=== PATIENT | female | born 1935 | race Caucasian/White ===

== ENCOUNTER 2017-07-21 15:08 | Emergency (ER) | payer MEDICARE, OTHER, MEDICAID ==
[2017-07-21] MEDS: ASPIRIN 81 MG TAB PO (15:45)
[2017-07-21] MEDS: ONDANSETRON 4 MG INJ IV (15:45)
[2017-07-21 16:10] LABS: ADD MAN DIFF? NO
[2017-07-21 16:16] LABS: BASOPHILS % 0.1 % (0.0-2.0); EOSINOPHILS # 0.1 10^3/ul (0.0-0.5); EOSINOPHILS % 0.9 % (0.0-7.0); HEMATOCRIT 34.3 % (37.0-47.0); HEMOGLOBIN 11.3 g/dl (12.0-16.0); LYMPHOCYTES % 20.4 % (15.0-51.0); MEAN CORPUSCULAR HEMOGLOBIN 29.1 pg (29.0-33.0); MEAN CORPUSCULAR HGB CONC 32.9 g/dl (32.0-37.0); MEAN CORPUSCULAR VOLUME 88.4 fl (82.0-101.0); MEAN PLATELET VOLUME 9.5 fl (7.4-10.4); MONOCYTE # 1.2 10^3/ul (0.3-0.9); MONOCYTES % 7.9 % (0.0-11.0); NEUTROPHIL # 10.2 10^3/ul (1.6-7.5); NEUTROPHILS % 69.6 % (39.0-77.0); PLATELET COUNT 367 10^3/UL (140-415); RED BLOOD COUNT 3.88 10^6/ul (4.20-5.40); RED CELL DISTRIBUTION WIDTH 13.6 % (11.5-14.5)
[2017-07-21 16:16] LABS: WHITE BLOOD COUNT 14.7 10^3/ul (4.8-10.8)
[2017-07-21] MEDS: morphine 4 MG/ML VIAL IV (16:35)
[2017-07-21 16:39] LABS: ANION GAP 15 (8-16); BLOOD UREA NITROGEN 19 mg/dl (7-20); CALCIUM 8.9 mg/dl (8.4-10.2); CARBON DIOXIDE 16 mmol/L (21-31); CHLORIDE 114 mmol/L (97-110); CREATININE 0.78 mg/dl (0.44-1.00); GLUCOSE 101 mg/dl (70-220); POTASSIUM 3.7 mmol/L (3.5-5.1); SODIUM 141 mmol/L (135-144)
[2017-07-21 16:51] LABS: B-TYPE NATRIURETIC PEPTIDE 977 PG/ML (0-450); TROPONIN-I 0.037 ng/ml (0.00-0.12)
== END 2017-07-21 19:40 | disposition home or self-care (01) ==
LOC: E/R 15:08
DX: Q67.7 Pectus carinatum (principal); R07.89 Other chest pain; D72.829 Elevated white blood cell count, unspecified; I10 Essential (primary) hypertension
CPT/HCPCS: 36415; 71045; 71250; 80048; 83880; 84484; 85025; 93005; 96374; 96375; 99285-25

== ENCOUNTER 2017-07-22 03:44 | Inpatient (IN) | payer MEDICARE, OTHER ==
[2017-07-22] MEDS ORDERED: HEPARIN 1000 UNITS/ML 10 ML INJ ×2 (03:55→04:33)
[2017-07-22] MEDS ORDERED: CLOPIDOGREL 75 MG TAB ×2 (03:55→04:06)
[2017-07-22] MEDS: morphine 4 MG/ML VIAL IV (04:03)
[2017-07-22] MEDS: ONDANSETRON 4 MG INJ IV (04:03)
[2017-07-22] MEDS: HEPARIN 1000 UNITS/ML 10 ML INJ IV (04:05)
[2017-07-22] MEDS: CLOPIDOGREL 300 MG TAB PO (04:07)
[2017-07-22 04:10] LABS: ADD MAN DIFF? NO
[2017-07-22 04:15] LABS: BASOPHILS % 0.1 % (0.0-2.0); EOSINOPHILS % 0.2 % (0.0-7.0); HEMATOCRIT 31.2 % (37.0-47.0); HEMOGLOBIN 10.3 g/dl (12.0-16.0); LYMPHOCYTES # 2.3 10^3/ul (0.8-2.9); LYMPHOCYTES % 13.4 % (15.0-51.0); MEAN CORPUSCULAR VOLUME 87.9 fl (82.0-101.0); MEAN PLATELET VOLUME 9.3 fl (7.4-10.4); MONOCYTE # 0.9 10^3/ul (0.3-0.9); MONOCYTES % 5.1 % (0.0-11.0); NEUTROPHIL # 13.6 10^3/ul (1.6-7.5); NEUTROPHILS % 80.5 % (39.0-77.0); PLATELET COUNT 354 10^3/UL (140-415); RED BLOOD COUNT 3.55 10^6/ul (4.20-5.40); RED CELL DISTRIBUTION WIDTH 13.4 % (11.5-14.5)
[2017-07-22 04:15] LABS: WHITE BLOOD COUNT 16.9 10^3/ul (4.8-10.8)
[2017-07-22 04:30] LABS: INR 0.99; PARTIAL THROMBOPLASTIN TIME 32.7 Sec (25.0-35.0); PROTIME 13.2 Sec (11.9-14.9)
[2017-07-22] MEDS ORDERED: LIDOCAINE 1% (MDV) 20 ML INJ (04:33)
[2017-07-22] MEDS ORDERED: VERAPAMIL 5 MG INJ (04:33)
[2017-07-22 04:34] LABS: ANION GAP 14 (8-16); BLOOD UREA NITROGEN 20 mg/dl (7-20); CALCIUM 8.5 mg/dl (8.4-10.2); CARBON DIOXIDE 19 mmol/L (21-31); CHLORIDE 113 mmol/L (97-110); CREATININE 0.82 mg/dl (0.44-1.00); GLUCOSE 207 mg/dl (70-220); POTASSIUM 3.9 mmol/L (3.5-5.1); SODIUM 142 mmol/L (135-144)
[2017-07-22] MEDS ORDERED: NITROGLYCERIN (IC) 100 MCG/ML INJ (04:34)
[2017-07-22 04:42] LABS: B-TYPE NATRIURETIC PEPTIDE 1920 PG/ML (0-450)
[2017-07-22 04:44] LABS: TROPONIN-I 0.612 ng/ml (0.00-0.12)
[2017-07-22] MEDS ORDERED: NITROGLYCERIN (SL) 0.4 MG TAB SL (05:00)
[2017-07-22] MEDS ORDERED: FENTAnyl 50 MCG/ML VIAL (05:13)
[2017-07-22] MEDS ORDERED: PHENYLephrine 10 MG INJ ×2 (05:14→05:34)
[2017-07-22] MEDS ORDERED: ADENOSINE 3 MG/ML 2ML VIAL IV (05:20)
[2017-07-22] MEDS ORDERED: ABCIXIMAB IV (05:30)
[2017-07-22] MEDS ORDERED: SOD CHLORIDE 0.9% IV (05:30)
[2017-07-22] MEDS ORDERED: PROPOFOL 100 ML (05:39)
[2017-07-22] MEDS ORDERED: FUROSEMIDE 40 MG INJ (05:54)
[2017-07-22] MEDS ORDERED: HEPARIN 25000 UNITS/250 ML 250 ML IV (06:30)
[2017-07-22] MEDS ORDERED: HEPARIN 1000 UNITS/ML 10 ML INJ IV ×2 (06:30)
[2017-07-22] MEDS ORDERED: PROPOFOL 200 MG INJ (07:00)
[2017-07-22] MEDS ORDERED: SUCCINYLCHOLINE CHLORIDE 100 MG/5 ML SYG IV (07:00)
[2017-07-22] MEDS ORDERED: ETOMIDATE 20 MG INJ (07:00)
[2017-07-22 07:08] LABS: CHOL/HDL RATIO 4.8 RATIO; HDL CHOLESTEROL 48 mg/dl (33-92); LDL CHOLESTEROL,CALCULATED 162 mg/dl; TRIGLYCERIDES 110 mg/dl (0-149)
[2017-07-22 07:08] LABS: CHOLESTEROL 232 mg/dl (100-200)
[2017-07-22] MEDS ORDERED: NORepinephrine 8MG/250 ML (PMX 250 ML (07:08)
[2017-07-22] MEDS ORDERED: PHENYLephrine 20MG IN 250 ML 250 ML (07:08)
[2017-07-22] MEDS ORDERED: DOPamine-D5W 1.6 MG/ML 250 ML ×2 (07:08→07:19)
[2017-07-22 07:47] LABS: WHITE BLOOD COUNT 28.2 10^3/ul (4.8-10.8)
[2017-07-22 07:47] LABS: ABNORMAL IP MESSAGE 1; HEMATOCRIT 29.3 % (37.0-47.0); HEMOGLOBIN 9.7 g/dl (12.0-16.0); MEAN CORPUSCULAR HEMOGLOBIN 29.6 pg (29.0-33.0); MEAN CORPUSCULAR HGB CONC 33.1 g/dl (32.0-37.0); MEAN CORPUSCULAR VOLUME 89.3 fl (82.0-101.0); MEAN PLATELET VOLUME 9.4 fl (7.4-10.4); PLATELET COUNT 308 10^3/UL (140-415); RED BLOOD COUNT 3.28 10^6/ul (4.20-5.40); RED CELL DISTRIBUTION WIDTH 13.6 % (11.5-14.5)
[2017-07-22 08:00] LABS: ADD MAN DIFF? YES; POSITIVE DIFF @See below
[2017-07-22] MEDS: SOD CHLORIDE 0.9% 1,000 ML IV (08:07)
[2017-07-22] MEDS: PROPOFOL 100 ML IV ×3 (08:07→17:08)
[2017-07-22] MEDS: [UNRECOGNIZED DRUG - OTHER] IV (08:15)
[2017-07-22] MEDS: DOPamine-D5W 1.6 MG/ML 250 ML IV ×2 (08:32→20:57)
[2017-07-22 08:36] LABS: PARTIAL THROMBOPLASTIN TIME > 180.0 Sec (25.0-35.0)
[2017-07-22 08:40] LABS: AADO2 Arterial 600.3 mmHg (7.0-24.0); Arterial Base Excess -13.5 mmol/L (-3.0-3); Arterial Blood Gas Oxygen Sat 92.9 mmHG (95.0-100.0); Arterial COHb 0.3 % (0.0-3.0); Arterial Fraction of Oxyhgb 92.6 % (93.0-99.0); Arterial HCO3 13.6 mmol/L (22.0-26.0); Arterial MetHb 0 % (0.0-1.5); Arterial Total Hemglobin 11.7 g/dl (12.0-18.0); Arterial pCO2 35.8 mmhg (35-45); MODE VENT - AC; Site A-Line
[2017-07-22] MEDS ORDERED: NA BICARBONATE 8.4% 50 ML SYG (08:48)
[2017-07-22] MEDS: NA BICARBONATE 8.4% 50 ML SYG IV (08:52)
[2017-07-22] MEDS: ATENOLOL 25 MG TAB PO (09:00)
[2017-07-22] MEDS ORDERED: ASPIRIN (EC) 81 MG TAB PO (09:00)
[2017-07-22] MEDS ORDERED: CLOPIDOGREL 75 MG TAB PO (09:00)
[2017-07-22] MEDS: SODIUM BICARBONATE (IV ADD) 100 MEQ in DEXTROSE 5%-0.45% NACL 1,000 ML IV (09:19)
[2017-07-22 09:38] LABS: BAND NEUTROPHILS #M 4.2 10^3/ul (0.0-0.6); BAND NEUTROPHILS % (M) 15 % (0-4); LYMPHOCYTES #M 1.1 10^3/ul (0.8-2.9); LYMPHOCYTES % (M) 4 % (15-51); PLATELET ESTIMATE NORMAL; SEGMENTED NEUTROPHILS (M) % 81 % (39-77); SMUDGE%M 10 % (0-0)
[2017-07-22] MEDS: CLOPIDOGREL 75 MG TAB PO (09:47)
[2017-07-22] MEDS: ASPIRIN (EC) 81 MG TAB PO (09:48)
[2017-07-22] MEDS: PIPER-TAZO 3.375 GM IV (PMX) 100 ML IVPB ×3 (10:49→22:07)
[2017-07-22 12:05] LABS: AADO2 Arterial 510.9 mmHg (7.0-24.0); Arterial Base Excess -3.4 mmol/L (-3.0-3); Arterial Blood Gas Oxygen Sat 98.7 mmHG (95.0-100.0); Arterial COHb 0.2 % (0.0-3.0); Arterial Fraction of Oxyhgb 98.3 % (93.0-99.0); Arterial HCO3 21.6 mmol/L (22.0-26.0); Arterial MetHb 0.2 % (0.0-1.5); Arterial Total Hemglobin 12.2 g/dl (12.0-18.0); Arterial pCO2 38.5 mmhg (35-45); MODE VENT - AC; Site A-Line
[2017-07-22] MEDS: FAMOTIDINE 20 MG INJ IV ×2 (12:20→20:57)
[2017-07-22] MEDS: FENTAnyl (DRIP) 1000 mcg/100mL 100 ML IV ×2 (13:39→21:06)
[2017-07-22 15:55] LABS: AADO2 Arterial 297.5 mmHg (7.0-24.0); Arterial Base Excess -0.8 mmol/L (-3.0-3); Arterial Blood Gas Oxygen Sat 97.3 mmHG (95.0-100.0); Arterial COHb 0.2 % (0.0-3.0); Arterial Fraction of Oxyhgb 96.9 % (93.0-99.0); Arterial HCO3 22.4 mmol/L (22.0-26.0); Arterial MetHb 0.2 % (0.0-1.5); Arterial Total Hemglobin 11.6 g/dl (12.0-18.0); Arterial pCO2 32.5 mmhg (35-45); MODE VENT - AC; Site A-Line
[2017-07-22 16:10] LABS: ANION GAP 14 (8-16)
[2017-07-22 16:14] LABS: ALANINE AMINOTRANSFERASE 129 IU/L (13-69); ALBUMIN 3.2 g/dl (3.3-4.9); ALKALINE PHOSPHATASE 68 IU/L (42-121); ASPARTATE AMINO TRANSFERASE 588 IU/L (15-46); BILIRUBIN,INDIRECT 0.3 mg/dl (0-1.1); BILIRUBIN,TOTAL 0.3 mg/dl (0.2-1.3); BLOOD UREA NITROGEN 17 mg/dl (7-20); CALCIUM 7.8 mg/dl (8.4-10.2); CARBON DIOXIDE 23 mmol/L (21-31); CHLORIDE 109 mmol/L (97-110); CREATININE 0.81 mg/dl (0.44-1.00); GLUCOSE 147 mg/dl (70-220); SODIUM 143 mmol/L (135-144); TOTAL PROTEIN 6.4 g/dl (6.1-8.1)
[2017-07-22 16:16] LABS: POTASSIUM 2.6 mmol/L (3.5-5.1)
[2017-07-22 16:39] LABS: MAGNESIUM 1.8 mg/dl (1.7-2.5)
[2017-07-22] MEDS ORDERED: MAGNESIUM SULFATE (GM) 50% 2 ML INJ IVPB (17:00)
[2017-07-22] MEDS: POTASSIUM CHLORIDE 20 MEQ POWDER FOR ORAL SOLN PO (17:19)
[2017-07-22] MEDS: MAG SULFATE 2GM IN 50 ML IVPB (17:23)
[2017-07-22] MEDS: DEXTROSE 5%-0.45% NACL 1,000 ML IV (17:54)
[2017-07-22] MEDS: POTASSIUM CHLORIDE 30 MEQ in DEXTROSE 5% 250 ML IVPB (18:12)
[2017-07-22] MEDS: ATORVASTATIN 80 MG TAB PO (20:58)
[2017-07-22 23:43] LABS: ANION GAP 13 (8-16); BLOOD UREA NITROGEN 15 mg/dl (7-20); CALCIUM 7.7 mg/dl (8.4-10.2); CARBON DIOXIDE 22 mmol/L (21-31); CHLORIDE 109 mmol/L (97-110); CREATININE 0.87 mg/dl (0.44-1.00); GLUCOSE 150 mg/dl (70-220); MAGNESIUM 2.5 mg/dl (1.7-2.5); PHOSPHORUS 3.2 mg/dl (2.5-4.9); POTASSIUM 3.7 mmol/L (3.5-5.1); SODIUM 140 mmol/L (135-144)
[2017-07-23] MEDS ORDERED: DEXTROSE 5%-0.45% NACL 500 ML IV (00:15)
[2017-07-23] MEDS: PROPOFOL 100 ML IV ×2 (00:56→08:36)
[2017-07-23] MEDS: POTASSIUM CHLORIDE 20 MEQ POWDER FOR ORAL SOLN NGT (01:33)
[2017-07-23] MEDS: SOD CHLORIDE 0.9% 250 ML IV (01:52)
[2017-07-23 05:58] LABS: ADD MAN DIFF? NO
[2017-07-23 06:05] LABS: WHITE BLOOD COUNT 14.6 10^3/ul (4.8-10.8)
[2017-07-23 06:05] LABS: BASOPHILS % 0.1 % (0.0-2.0); EOSINOPHILS # 0.1 10^3/ul (0.0-0.5); EOSINOPHILS % 0.4 % (0.0-7.0); HEMATOCRIT 29.5 % (37.0-47.0); HEMOGLOBIN 9.7 g/dl (12.0-16.0); LYMPHOCYTES # 1.5 10^3/ul (0.8-2.9); LYMPHOCYTES % 10.2 % (15.0-51.0); MEAN CORPUSCULAR HGB CONC 32.9 g/dl (32.0-37.0); MEAN CORPUSCULAR VOLUME 88.3 fl (82.0-101.0); MEAN PLATELET VOLUME 9.9 fl (7.4-10.4); MONOCYTE # 1.1 10^3/ul (0.3-0.9); MONOCYTES % 7.7 % (0.0-11.0); NEUTROPHIL # 11.8 10^3/ul (1.6-7.5); NEUTROPHILS % 80.9 % (39.0-77.0); PLATELET COUNT 287 10^3/UL (140-415); RED BLOOD COUNT 3.34 10^6/ul (4.20-5.40); RED CELL DISTRIBUTION WIDTH 13.9 % (11.5-14.5)
[2017-07-23] MEDS: PIPER-TAZO 3.375 GM IV (PMX) 100 ML IVPB ×3 (06:20→22:22)
[2017-07-23] MEDS: DOPamine-D5W 1.6 MG/ML 250 ML IV (06:33)
[2017-07-23 06:45] LABS: ANION GAP 11 (8-16); BLOOD UREA NITROGEN 15 mg/dl (7-20); CALCIUM 7.5 mg/dl (8.4-10.2); CARBON DIOXIDE 22 mmol/L (21-31); CHLORIDE 112 mmol/L (97-110); CREATININE 0.94 mg/dl (0.44-1.00); GLUCOSE 111 mg/dl (70-220); MAGNESIUM 2.3 mg/dl (1.7-2.5); PHOSPHORUS 3.1 mg/dl (2.5-4.9); POTASSIUM 3.7 mmol/L (3.5-5.1); SODIUM 141 mmol/L (135-144)
[2017-07-23 06:53] LABS: ALANINE AMINOTRANSFERASE 114 IU/L (13-69); ALBUMIN 2.6 g/dl (3.3-4.9); ALBUMIN/GLOBULIN RATIO 1.04; ALKALINE PHOSPHATASE 58 IU/L (42-121); ANION GAP 11 (8-16); ASPARTATE AMINO TRANSFERASE 391 IU/L (15-46); BILIRUBIN,INDIRECT 0.2 mg/dl (0-1.1); BILIRUBIN,TOTAL 0.2 mg/dl (0.2-1.3); BLOOD UREA NITROGEN 15 mg/dl (7-20); CALCIUM 7.6 mg/dl (8.4-10.2); CARBON DIOXIDE 22 mmol/L (21-31); CHLORIDE 112 mmol/L (97-110); GLUCOSE 106 mg/dl (70-220); SODIUM 141 mmol/L (135-144); TOTAL PROTEIN 5.1 g/dl (6.1-8.1)
[2017-07-23] MEDS ORDERED: NORepinephrine 8MG/250 ML (PMX 250 ML (07:13)
[2017-07-23] MEDS: FENTAnyl (DRIP) 1000 mcg/100mL 100 ML IV (07:52)
[2017-07-23] MEDS: CLOPIDOGREL 75 MG TAB PO (08:12)
[2017-07-23] MEDS: FAMOTIDINE 20 MG INJ IV ×2 (08:12→21:13)
[2017-07-23] MEDS: ASPIRIN (EC) 81 MG TAB PO (08:12)
[2017-07-23] MEDS: ATENOLOL 25 MG TAB PO (08:12)
[2017-07-23] MEDS: NORepinephrine 8MG/250 ML (PMX 250 ML IV (08:35)
[2017-07-23 08:49] LABS: Allen Test ACCEPTAB; Arterial Base Excess -6.1 mmol/L (-3.0-3); Arterial Blood Gas Oxygen Sat 92.8 mmHG (95.0-100.0); Arterial COHb 0.3 % (0.0-3.0); Arterial Fraction of Oxyhgb 92.4 % (93.0-99.0); Arterial HCO3 18.9 mmol/L (22.0-26.0); Arterial MetHb 0.1 % (0.0-1.5); Arterial Total Hemglobin 10.9 g/dl (12.0-18.0); Arterial pCO2 35.1 mmhg (35-45); MODE VENT - AC; Site Right Radial
[2017-07-23] MEDS: DEXTROSE 5%-0.45% NACL 1,000 ML IV (11:58)
[2017-07-23 14:14] LABS: AADO2 Arterial 175.7 mmHg (7.0-24.0); Allen Test ACCEPTAB; Arterial Base Excess -5.6 mmol/L (-3.0-3); Arterial COHb 0.3 % (0.0-3.0); Arterial Fraction of Oxyhgb 93.5 % (93.0-99.0); Arterial HCO3 18.8 mmol/L (22.0-26.0); Arterial MetHb 0.2 % (0.0-1.5); Arterial Total Hemglobin 11.9 g/dl (12.0-18.0); Arterial pCO2 33.2 mmhg (35-45); Blood Gas PS 10; MODE VENT - CPAP; Site Right Radial
[2017-07-23] MEDS ORDERED: ALBUTEROL/IPRATROPIUM (NEB) 3 ML AMP (15:03)
[2017-07-23] MEDS: ALBUTEROL/IPRATROPIUM (NEB) 3 ML AMP HHN ×2 (15:07→20:25)
[2017-07-23] MEDS: morphine 2 MG INJ IV (20:43)
[2017-07-23] MEDS: ATORVASTATIN 80 MG TAB PO (21:13)
[2017-07-24] MEDS: ALBUTEROL/IPRATROPIUM (NEB) 3 ML AMP HHN ×6 (00:57→20:52)
[2017-07-24] MEDS: DEXTROSE 5%-0.45% NACL 1,000 ML IV ×2 (02:50→10:18)
[2017-07-24 05:23] LABS: ADD MAN DIFF? NO
[2017-07-24 05:49] LABS: WHITE BLOOD COUNT 18.4 10^3/ul (4.8-10.8)
[2017-07-24 05:49] LABS: ABNORMAL IP MESSAGE 1; BASOPHILS % 0.2 % (0.0-2.0); EOSINOPHILS % 0.1 % (0.0-7.0); HEMATOCRIT 29.1 % (37.0-47.0); HEMOGLOBIN 9.3 g/dl (12.0-16.0); MEAN CORPUSCULAR HEMOGLOBIN 28.9 pg (29.0-33.0); MEAN CORPUSCULAR VOLUME 90.4 fl (82.0-101.0); MONOCYTE # 1.5 10^3/ul (0.3-0.9); MONOCYTES % 8.2 % (0.0-11.0); NEUTROPHIL # 14.7 10^3/ul (1.6-7.5); NEUTROPHILS % 79.8 % (39.0-77.0); PLATELET COUNT 278 10^3/UL (140-415); RED BLOOD COUNT 3.22 10^6/ul (4.20-5.40); RED CELL DISTRIBUTION WIDTH 14.1 % (11.5-14.5)
[2017-07-24] MEDS: PIPER-TAZO 3.375 GM IV (PMX) 100 ML IVPB (06:14)
[2017-07-24] MEDS: ONDANSETRON 4 MG INJ IV (06:16)
[2017-07-24 06:20] LABS: POSITIVE DIFF @See below
[2017-07-24 06:21] LABS: ANION GAP 11 (8-16); BLOOD UREA NITROGEN 12 mg/dl (7-20); CARBON DIOXIDE 21 mmol/L (21-31); CHLORIDE 112 mmol/L (97-110); CREATININE 0.89 mg/dl (0.44-1.00); GLUCOSE 150 mg/dl (70-220); MAGNESIUM 2.2 mg/dl (1.7-2.5); PHOSPHORUS 3.3 mg/dl (2.5-4.9); POTASSIUM 3.4 mmol/L (3.5-5.1); SODIUM 141 mmol/L (135-144)
[2017-07-24] MEDS: ATENOLOL 25 MG TAB PO ×2 (07:41→10:16)
[2017-07-24] MEDS: CLOPIDOGREL 75 MG TAB PO (08:43)
[2017-07-24] MEDS: FAMOTIDINE 20 MG INJ IV ×2 (08:43→20:30)
[2017-07-24] MEDS: ASPIRIN (EC) 81 MG TAB PO (08:44)
[2017-07-24] MEDS: FUROSEMIDE 20 MG INJ IV (12:10)
[2017-07-24] MEDS: SOD CHLORIDE 0.9% 500 ML IV (18:55)
[2017-07-24] MEDS: AMIODARONE 150MG/D5W BOLUS 100 ML IV (19:34)
[2017-07-24] MEDS: ATORVASTATIN 80 MG TAB PO (20:30)
[2017-07-25] MEDS: ALBUTEROL/IPRATROPIUM (NEB) 3 ML AMP HHN ×6 (01:08→20:24)
[2017-07-25] MEDS: ACETAMINOPHEN 650MG/20.3ML CUP PO (04:58)
[2017-07-25] MEDS: morphine 2 MG INJ IV (05:08)
[2017-07-25] MEDS: ATENOLOL 25 MG TAB PO (08:12)
[2017-07-25] MEDS: ASPIRIN (EC) 81 MG TAB PO (08:32)
[2017-07-25] MEDS: CLOPIDOGREL 75 MG TAB PO (08:32)
[2017-07-25] MEDS: FUROSEMIDE 20 MG INJ IV (08:32)
[2017-07-25] MEDS: FAMOTIDINE 20 MG INJ IV ×2 (08:33→20:54)
[2017-07-25] MEDS: AMIODARONE 150MG/D5W BOLUS 100 ML IV (11:00)
[2017-07-25] MEDS: AMIODARONE 900 MG in DEXTROSE 5% 482 ML IV (11:12)
[2017-07-25 13:05] LABS: LACTIC ACID 2.3 mmol/L (0.5-2.0)
[2017-07-25] MEDS: ATORVASTATIN 80 MG TAB PO (20:54)
[2017-07-25 21:59] LABS: AADO2 Arterial 288.8 mmHg (7.0-24.0); Allen Test ACCEPTAB; Arterial Base Excess -5.4 mmol/L (-3.0-3); Arterial Blood Gas Oxygen Sat 90.2 mmHG (95.0-100.0); Arterial COHb 0.3 % (0.0-3.0); Arterial Fraction of Oxyhgb 89.8 % (93.0-99.0); Arterial MetHb 0.1 % (0.0-1.5); Arterial Total Hemglobin 10.9 g/dl (12.0-18.0); Arterial pCO2 28.5 mmhg (35-45); MODE MASK - SIMPLE; Site Left Radial
[2017-07-25] MEDS ORDERED: FUROSEMIDE 40 MG INJ (23:00)
[2017-07-25] MEDS: FUROSEMIDE 40 MG INJ IV (23:04)
[2017-07-26] MEDS: ALBUTEROL/IPRATROPIUM (NEB) 3 ML AMP HHN ×6 (00:17→20:40)
[2017-07-26 05:46] LABS: ADD MAN DIFF? NO
[2017-07-26 05:53] LABS: WHITE BLOOD COUNT 14.8 10^3/ul (4.8-10.8)
[2017-07-26 05:53] LABS: BASOPHILS % 0.1 % (0.0-2.0); EOSINOPHILS % 0.1 % (0.0-7.0); HEMATOCRIT 27.3 % (37.0-47.0); HEMOGLOBIN 9.1 g/dl (12.0-16.0); LYMPHOCYTES # 1.2 10^3/ul (0.8-2.9); LYMPHOCYTES % 8.3 % (15.0-51.0); MEAN CORPUSCULAR HEMOGLOBIN 29.2 pg (29.0-33.0); MEAN CORPUSCULAR HGB CONC 33.3 g/dl (32.0-37.0); MEAN CORPUSCULAR VOLUME 87.5 fl (82.0-101.0); MEAN PLATELET VOLUME 10.4 fl (7.4-10.4); MONOCYTE # 0.9 10^3/ul (0.3-0.9); MONOCYTES % 6.2 % (0.0-11.0); NEUTROPHIL # 12.5 10^3/ul (1.6-7.5); NEUTROPHILS % 84.8 % (39.0-77.0); PLATELET COUNT 238 10^3/UL (140-415); RED BLOOD COUNT 3.12 10^6/ul (4.20-5.40); RED CELL DISTRIBUTION WIDTH 14.3 % (11.5-14.5)
[2017-07-26 06:22] LABS: LACTIC ACID 1.5 mmol/L (0.5-2.0)
[2017-07-26 06:38] LABS: ANION GAP 10 (8-16); BLOOD UREA NITROGEN 12 mg/dl (7-20); CARBON DIOXIDE 24 mmol/L (21-31); CHLORIDE 110 mmol/L (97-110); CREATININE 1.06 mg/dl (0.44-1.00); GLUCOSE 130 mg/dl (70-220); PHOSPHORUS 2.5 mg/dl (2.5-4.9); POTASSIUM 3.4 mmol/L (3.5-5.1); SODIUM 141 mmol/L (135-144)
[2017-07-26] MEDS: POTASSIUM CHLORIDE (SR) 20 MEQ TAB PO (07:26)
[2017-07-26] MEDS: ATENOLOL 25 MG TAB PO (08:18)
[2017-07-26] MEDS: CLOPIDOGREL 75 MG TAB PO (08:18)
[2017-07-26] MEDS: FUROSEMIDE 20 MG INJ IV ×2 (08:18→17:07)
[2017-07-26] MEDS: ASPIRIN (EC) 81 MG TAB PO (08:18)
[2017-07-26] MEDS: FAMOTIDINE 20 MG INJ IV ×2 (08:18→20:56)
[2017-07-26] MEDS: AMIODARONE 200 MG TAB PO ×2 (11:05→20:56)
[2017-07-26] MEDS: ONDANSETRON 4 MG INJ IV (19:41)
[2017-07-26] MEDS: ATORVASTATIN 80 MG TAB PO (20:51)
[2017-07-27] MEDS: ALBUTEROL/IPRATROPIUM (NEB) 3 ML AMP HHN ×3 (01:37→08:58)
[2017-07-27] MEDS: DILTIAZEM 25 MG INJ IV (03:59)
[2017-07-27] MEDS: DIGOXIN 500 MCG INJ IV (05:21)
[2017-07-27] MEDS: FUROSEMIDE 20 MG INJ IV (05:31)
[2017-07-27] MEDS ORDERED: DILTIAZEM-D5W 125MG/125ML DRIP 125 ML IV (06:30)
[2017-07-27] MEDS: SOD CHLORIDE 0.9% 250 ML IV ×2 (06:40→06:46)
[2017-07-27] MEDS: DILTIAZEM-D5W 125MG/125ML DRIP 125 ML IV ×2 (06:41→18:26)
[2017-07-27 06:48] LABS: ANION GAP 9 (8-16); BLOOD UREA NITROGEN 14 mg/dl (7-20); CALCIUM 8.5 mg/dl (8.4-10.2); CARBON DIOXIDE 29 mmol/L (21-31); CHLORIDE 109 mmol/L (97-110); CREATININE 1.08 mg/dl (0.44-1.00); GLUCOSE 129 mg/dl (70-220); POTASSIUM 3.7 mmol/L (3.5-5.1); SODIUM 143 mmol/L (135-144)
[2017-07-27 07:04] LABS: MAGNESIUM 2.1 mg/dl (1.7-2.5)
[2017-07-27] MEDS: CLOPIDOGREL 75 MG TAB PO (08:29)
[2017-07-27] MEDS: AMIODARONE 200 MG TAB PO ×2 (08:29→21:00)
[2017-07-27] MEDS: ASPIRIN (EC) 81 MG TAB PO (08:29)
[2017-07-27] MEDS: ATENOLOL 25 MG TAB PO (08:30)
[2017-07-27] MEDS: FAMOTIDINE 20 MG INJ IV (08:36)
[2017-07-27] MEDS ORDERED: LEVALBUTEROL (NEB) 0.63 MG/3 ML AMP HHN (13:00)
[2017-07-27] MEDS: ONDANSETRON 4 MG INJ IV ×2 (13:49→20:17)
[2017-07-27] MEDS: FUROSEMIDE 40 MG INJ IV (17:08)
[2017-07-27] MEDS: morphine LIQ (10 MG/5 ML) CUP PO (18:34)
[2017-07-27] MEDS: ENOXAPARIN 80 MG/0.8 ML SYG SC (19:42)
[2017-07-27] MEDS: MIDAZOLAM 1 MG/ML 2 ML INJ IV (19:43)
[2017-07-27] MEDS: FENTAnyl 50 MCG/ML VIAL IV (19:44)
[2017-07-27] MEDS: APIXABAN 5 MG TABLET PO (21:00)
[2017-07-27] MEDS: AMIODARONE 900 MG in DEXTROSE 5% 482 ML IV (21:09)
[2017-07-27] MEDS: ATORVASTATIN 80 MG TAB PO (22:09)
[2017-07-28 05:40] LABS: WHITE BLOOD COUNT 11.6 10^3/ul (4.8-10.8)
[2017-07-28 05:40] LABS: ADD MAN DIFF? NO; BASOPHILS % 0.3 % (0.0-2.0); EOSINOPHILS # 0.2 10^3/ul (0.0-0.5); EOSINOPHILS % 1.6 % (0.0-7.0); HEMATOCRIT 27.2 % (37.0-47.0); LYMPHOCYTES # 1.3 10^3/ul (0.8-2.9); LYMPHOCYTES % 11.2 % (15.0-51.0); MEAN CORPUSCULAR HEMOGLOBIN 28.8 pg (29.0-33.0); MEAN CORPUSCULAR HGB CONC 33.1 g/dl (32.0-37.0); MEAN CORPUSCULAR VOLUME 87.2 fl (82.0-101.0); MEAN PLATELET VOLUME 10.2 fl (7.4-10.4); MONOCYTE # 0.7 10^3/ul (0.3-0.9); MONOCYTES % 6.4 % (0.0-11.0); NEUTROPHIL # 9.3 10^3/ul (1.6-7.5); NEUTROPHILS % 80.1 % (39.0-77.0); PLATELET COUNT 305 10^3/UL (140-415); RED BLOOD COUNT 3.12 10^6/ul (4.20-5.40); RED CELL DISTRIBUTION WIDTH 14.2 % (11.5-14.5)
[2017-07-28] MEDS: FUROSEMIDE 40 MG INJ IV ×2 (05:41→17:50)
[2017-07-28 06:07] LABS: ANION GAP 7 (8-16); BLOOD UREA NITROGEN 16 mg/dl (7-20); CALCIUM 8.1 mg/dl (8.4-10.2); CARBON DIOXIDE 33 mmol/L (21-31); CHLORIDE 104 mmol/L (97-110); CREATININE 1.03 mg/dl (0.44-1.00); GLUCOSE 102 mg/dl (70-220); MAGNESIUM 2.1 mg/dl (1.7-2.5); PHOSPHORUS 2.2 mg/dl (2.5-4.9); POTASSIUM 3.1 mmol/L (3.5-5.1); SODIUM 141 mmol/L (135-144)
[2017-07-28] MEDS: POTASSIUM CHLORIDE (SR) 20 MEQ TAB PO ×2 (08:25→15:03)
[2017-07-28] MEDS: CLOPIDOGREL 75 MG TAB PO (08:26)
[2017-07-28] MEDS: APIXABAN 5 MG TABLET PO ×2 (08:26→20:18)
[2017-07-28] MEDS: ATENOLOL 25 MG TAB PO (09:00)
[2017-07-28] MEDS: AMIODARONE 200 MG TAB PO ×2 (09:39→20:17)
[2017-07-28 16:52] LABS: AADO2 Arterial 326.5 mmHg (7.0-24.0); Allen Test ACCEPTAB; Arterial Base Excess 7.2 mmol/L (-3.0-3); Arterial Blood Gas Oxygen Sat 93.1 mmHG (95.0-100.0); Arterial COHb 0.3 % (0.0-3.0); Arterial Fraction of Oxyhgb 92.6 % (93.0-99.0); Arterial HCO3 29.8 mmol/L (22.0-26.0); Arterial MetHb 0.2 % (0.0-1.5); Arterial Total Hemglobin 10.1 g/dl (12.0-18.0); Arterial pCO2 34.5 mmhg (35-45); MODE HFNC; Site Right Radial
[2017-07-28] MEDS: ATORVASTATIN 80 MG TAB PO (20:17)
[2017-07-28] MEDS: AMIODARONE 900 MG in DEXTROSE 5% 482 ML IV (22:40)
[2017-07-29] MEDS ORDERED: AMIODARONE 900 MG in DEXTROSE 5% 482 ML IV (02:00)
[2017-07-29 05:03] LABS: ADD MAN DIFF? NO
[2017-07-29 05:08] LABS: WHITE BLOOD COUNT 11.1 10^3/ul (4.8-10.8)
[2017-07-29 05:08] LABS: BASOPHILS % 0.3 % (0.0-2.0); EOSINOPHILS # 0.2 10^3/ul (0.0-0.5); EOSINOPHILS % 1.8 % (0.0-7.0); HEMATOCRIT 29.9 % (37.0-47.0); HEMOGLOBIN 10.1 g/dl (12.0-16.0); LYMPHOCYTES # 1.4 10^3/ul (0.8-2.9); LYMPHOCYTES % 12.9 % (15.0-51.0); MEAN CORPUSCULAR HGB CONC 33.8 g/dl (32.0-37.0); MEAN CORPUSCULAR VOLUME 85.9 fl (82.0-101.0); MONOCYTE # 0.9 10^3/ul (0.3-0.9); MONOCYTES % 7.7 % (0.0-11.0); NEUTROPHIL # 8.5 10^3/ul (1.6-7.5); NEUTROPHILS % 76.8 % (39.0-77.0); PLATELET COUNT 368 10^3/UL (140-415); RED BLOOD COUNT 3.48 10^6/ul (4.20-5.40); RED CELL DISTRIBUTION WIDTH 14.2 % (11.5-14.5)
[2017-07-29 05:28] LABS: ANION GAP 9 (8-16); BLOOD UREA NITROGEN 19 mg/dl (7-20); CALCIUM 8.9 mg/dl (8.4-10.2); CARBON DIOXIDE 36 mmol/L (21-31); CHLORIDE 98 mmol/L (97-110); CREATININE 1.24 mg/dl (0.44-1.00); GLUCOSE 130 mg/dl (70-220); MAGNESIUM 2.1 mg/dl (1.7-2.5); POTASSIUM 4.2 mmol/L (3.5-5.1); SODIUM 139 mmol/L (135-144)
[2017-07-29] MEDS: FUROSEMIDE 40 MG INJ IV ×2 (05:38→17:42)
[2017-07-29] MEDS: APIXABAN 5 MG TABLET PO ×2 (08:37→20:22)
[2017-07-29] MEDS: CLOPIDOGREL 75 MG TAB PO (08:37)
[2017-07-29] MEDS: POTASSIUM CHLORIDE (SR) 20 MEQ TAB PO (08:37)
[2017-07-29] MEDS: AMIODARONE 200 MG TAB PO ×2 (08:37→20:22)
[2017-07-29] MEDS: ONDANSETRON 4 MG INJ IV (16:40)
[2017-07-29] MEDS: ATORVASTATIN 80 MG TAB PO (20:22)
[2017-07-30] MEDS: FUROSEMIDE 40 MG INJ IV ×2 (05:20→17:59)
[2017-07-30 06:16] LABS: ADD MAN DIFF? NO
[2017-07-30 06:28] LABS: WHITE BLOOD COUNT 12.4 10^3/ul (4.8-10.8)
[2017-07-30 06:28] LABS: BASOPHILS % 0.2 % (0.0-2.0); EOSINOPHILS # 0.2 10^3/ul (0.0-0.5); EOSINOPHILS % 1.5 % (0.0-7.0); HEMATOCRIT 33.4 % (37.0-47.0); LYMPHOCYTES % 16.5 % (15.0-51.0); MEAN CORPUSCULAR HEMOGLOBIN 28.2 pg (29.0-33.0); MEAN CORPUSCULAR HGB CONC 32.9 g/dl (32.0-37.0); MEAN CORPUSCULAR VOLUME 85.6 fl (82.0-101.0); MONOCYTES % 7.7 % (0.0-11.0); NEUTROPHIL # 9.1 10^3/ul (1.6-7.5); NEUTROPHILS % 73.6 % (39.0-77.0); PLATELET COUNT 461 10^3/UL (140-415); RED CELL DISTRIBUTION WIDTH 13.9 % (11.5-14.5)
[2017-07-30 06:32] LABS: POSITIVE DIFF @See below
[2017-07-30 06:41] LABS: ANION GAP 13 (8-16); BLOOD UREA NITROGEN 25 mg/dl (7-20); CALCIUM 9.5 mg/dl (8.4-10.2); CARBON DIOXIDE 34 mmol/L (21-31); CHLORIDE 96 mmol/L (97-110); CREATININE 1.44 mg/dl (0.44-1.00); GLUCOSE 125 mg/dl (70-220); SODIUM 139 mmol/L (135-144)
[2017-07-30] MEDS: CLOPIDOGREL 75 MG TAB PO (08:58)
[2017-07-30] MEDS: POTASSIUM CHLORIDE (SR) 20 MEQ TAB PO (08:58)
[2017-07-30] MEDS: APIXABAN 5 MG TABLET PO ×2 (08:58→20:42)
[2017-07-30] MEDS: AMIODARONE 200 MG TAB PO ×2 (08:59→20:42)
[2017-07-30] MEDS: ATORVASTATIN 80 MG TAB PO (20:42)
[2017-07-30] MEDS: morphine LIQ (10 MG/5 ML) CUP PO (22:51)
[2017-07-31] MEDS: FUROSEMIDE 40 MG INJ IV (05:25)
[2017-07-31] MEDS: morphine LIQ (10 MG/5 ML) CUP PO (05:26)
[2017-07-31] MEDS: POTASSIUM CHLORIDE (SR) 20 MEQ TAB PO (08:55)
[2017-07-31] MEDS: CLOPIDOGREL 75 MG TAB PO (08:56)
[2017-07-31] MEDS: APIXABAN 5 MG TABLET PO ×2 (08:56→21:10)
[2017-07-31] MEDS: AMIODARONE 200 MG TAB PO ×2 (08:56→21:09)
[2017-07-31 10:42] LABS: ADD MAN DIFF? NO
[2017-07-31 10:43] LABS: BASOPHIL # 0.1 10^3/ul (0.0-0.1); BASOPHILS % 0.4 % (0.0-2.0); EOSINOPHILS # 0.3 10^3/ul (0.0-0.5); EOSINOPHILS % 2.4 % (0.0-7.0); HEMATOCRIT 32.7 % (37.0-47.0); LYMPHOCYTES # 2.2 10^3/ul (0.8-2.9); LYMPHOCYTES % 19.4 % (15.0-51.0); MEAN CORPUSCULAR HEMOGLOBIN 28.8 pg (29.0-33.0); MEAN CORPUSCULAR HGB CONC 33.6 g/dl (32.0-37.0); MEAN CORPUSCULAR VOLUME 85.6 fl (82.0-101.0); MEAN PLATELET VOLUME 9.9 fl (7.4-10.4); MONOCYTE # 0.9 10^3/ul (0.3-0.9); MONOCYTES % 7.7 % (0.0-11.0); NEUTROPHIL # 7.9 10^3/ul (1.6-7.5); NEUTROPHILS % 69.4 % (39.0-77.0); PLATELET COUNT 482 10^3/UL (140-415); RED BLOOD COUNT 3.82 10^6/ul (4.20-5.40); RED CELL DISTRIBUTION WIDTH 13.8 % (11.5-14.5)
[2017-07-31 10:43] LABS: WHITE BLOOD COUNT 11.4 10^3/ul (4.8-10.8)
[2017-07-31 11:11] LABS: ANION GAP 12 (8-16); BLOOD UREA NITROGEN 29 mg/dl (7-20); CALCIUM 9.3 mg/dl (8.4-10.2); CARBON DIOXIDE 35 mmol/L (21-31); CHLORIDE 92 mmol/L (97-110); CREATININE 1.45 mg/dl (0.44-1.00); GLUCOSE 153 mg/dl (70-220); POTASSIUM 4.2 mmol/L (3.5-5.1); SODIUM 135 mmol/L (135-144)
[2017-07-31] MEDS: ONDANSETRON 4 MG INJ IV (11:28)
[2017-07-31] MEDS: ATORVASTATIN 80 MG TAB PO (21:08)
[2017-08-01 06:37] LABS: ADD MAN DIFF? NO
[2017-08-01 06:42] LABS: BASOPHILS % 0.3 % (0.0-2.0); EOSINOPHILS # 0.2 10^3/ul (0.0-0.5); EOSINOPHILS % 1.7 % (0.0-7.0); HEMOGLOBIN 10.2 g/dl (12.0-16.0); LYMPHOCYTES # 2.1 10^3/ul (0.8-2.9); LYMPHOCYTES % 17.9 % (15.0-51.0); MEAN CORPUSCULAR HEMOGLOBIN 28.3 pg (29.0-33.0); MEAN CORPUSCULAR HGB CONC 32.9 g/dl (32.0-37.0); MEAN CORPUSCULAR VOLUME 86.1 fl (82.0-101.0); MONOCYTES % 8.3 % (0.0-11.0); NEUTROPHIL # 8.2 10^3/ul (1.6-7.5); NEUTROPHILS % 71.2 % (39.0-77.0); PLATELET COUNT 492 10^3/UL (140-415); RED CELL DISTRIBUTION WIDTH 13.9 % (11.5-14.5)
[2017-08-01 06:42] LABS: WHITE BLOOD COUNT 11.5 10^3/ul (4.8-10.8)
[2017-08-01 07:15] LABS: ANION GAP 12 (8-16); BLOOD UREA NITROGEN 33 mg/dl (7-20); CALCIUM 8.8 mg/dl (8.4-10.2); CARBON DIOXIDE 35 mmol/L (21-31); CHLORIDE 95 mmol/L (97-110); CREATININE 1.31 mg/dl (0.44-1.00); GLUCOSE 117 mg/dl (70-220); POTASSIUM 4.4 mmol/L (3.5-5.1); SODIUM 138 mmol/L (135-144)
[2017-08-01] MEDS: CLOPIDOGREL 75 MG TAB PO (08:38)
[2017-08-01] MEDS: APIXABAN 5 MG TABLET PO (08:38)
[2017-08-01] MEDS: AMIODARONE 200 MG TAB PO (08:38)
[2017-08-01] MEDS: POTASSIUM CHLORIDE (SR) 20 MEQ TAB PO (08:38)
[2017-08-01] MEDS: ALBUTEROL/IPRATROPIUM (NEB) 3 ML AMP HHN (13:18)
== END 2017-08-01 16:55 | disposition home health service (06) | DRG 270 ==
LOC: TEL 07-29 15:56 → PP2 07-31 05:51 → E/R 03:44 → ICU 04:51
PROC: 027036Z Dilation of Coronary Artery, One Artery with Three Drug-eluting Intraluminal Devices, Percutaneous Approach (ICD-10-PCS; principal; 2017-07-22 04:00)
PROC: 5A02210 Assistance with Cardiac Output using Balloon Pump, Continuous (ICD-10-PCS; 2017-07-22 04:00)
PROC: 4A023N7 Measurement of Cardiac Sampling and Pressure, Left Heart, Percutaneous Approach (ICD-10-PCS; 2017-07-22 04:00)
PROC: B211YZZ Fluoroscopy of Multiple Coronary Arteries using Other Contrast (ICD-10-PCS; 2017-07-22 04:00)
PROC: 0BH17EZ Insertion of Endotracheal Airway into Trachea, Via Natural or Artificial Opening (ICD-10-PCS; 2017-07-22 04:20)
PROC: 5A1945Z Respiratory Ventilation, 24-96 Consecutive Hours (ICD-10-PCS; 2017-07-22 04:20)
DX: I21.09 ST elevation (STEMI) myocardial infarction involving other coronary artery of anterior wall (principal); J96.00 Acute respiratory failure, unspecified whether with hypoxia or hypercapnia; R57.0 Cardiogenic shock; I50.21 Acute systolic (congestive) heart failure; E87.2 Acidosis; N17.9 Acute kidney failure, unspecified; E11.9 Type 2 diabetes mellitus without complications; E78.5 Hyperlipidemia, unspecified; I25.10 Atherosclerotic heart disease of native coronary artery without angina pectoris; E87.6 Hypokalemia; I11.0 Hypertensive heart disease with heart failure; I48.0 Paroxysmal atrial fibrillation; N14.1 Nephropathy induced by other drugs, medicaments and biological substances; T50.1X5A Adverse effect of loop [high-ceiling] diuretics, initial encounter; Y92.239 Unspecified place in hospital as the place of occurrence of the external cause
CPT/HCPCS: 31500; 36415; 36600; 71045; 80048; 80053; 80061; 82533; 82803; 82962; 83036; 83605; 83735; 83880; 84100; 84443; 84484; 85025; 85610; 85730; 87081; 93005; 93306; 93458; 94002; 94003; 94640; 94664; 94770; 96374; 96375; 97110; 97116; 97162; 97167; 97530; 99291-25; J1940

== ENCOUNTER 2017-09-17 10:27 | Inpatient (IN) | payer MEDICARE, OTHER ==
[2017-09-17] MEDS: ALBUTEROL 0.083% (NEB) 2.5 MG/3 ML AMP HHN ×3 (10:59→20:44)
[2017-09-17] MEDS: IPRATROPIUM (NEB) 0.5 MG/2.5 ML AMP HHN (10:59)
[2017-09-17] MEDS: CEFTRIAXONE 1 GM/50 ML (PMX) 50 ML IVPB (11:19)
[2017-09-17 11:24] LABS: ADD MAN DIFF? NO
[2017-09-17 11:28] LABS: WHITE BLOOD COUNT 7.7 10^3/ul (4.8-10.8)
[2017-09-17 11:28] LABS: BASOPHILS % 0.5 % (0.0-2.0); EOSINOPHILS # 0.1 10^3/ul (0.0-0.5); EOSINOPHILS % 1.2 % (0.0-7.0); HEMATOCRIT 31.7 % (37.0-47.0); HEMOGLOBIN 10.3 g/dl (12.0-16.0); LYMPHOCYTES # 1.2 10^3/ul (0.8-2.9); LYMPHOCYTES % 14.9 % (15.0-51.0); MEAN CORPUSCULAR HEMOGLOBIN 28.9 pg (29.0-33.0); MEAN CORPUSCULAR HGB CONC 32.5 g/dl (32.0-37.0); MEAN CORPUSCULAR VOLUME 88.8 fl (82.0-101.0); MEAN PLATELET VOLUME 9.7 fl (7.4-10.4); MONOCYTE # 0.5 10^3/ul (0.3-0.9); MONOCYTES % 6.7 % (0.0-11.0); NEUTROPHIL # 5.9 10^3/ul (1.6-7.5); NEUTROPHILS % 76.3 % (39.0-77.0); PLATELET COUNT 330 10^3/UL (140-415); RED BLOOD COUNT 3.57 10^6/ul (4.20-5.40); RED CELL DISTRIBUTION WIDTH 15.4 % (11.5-14.5)
[2017-09-17 11:56] LABS: INR 1.04; PROTIME 13.7 Sec (11.9-14.9); PT RATIO 1.1
[2017-09-17 11:57] LABS: PARTIAL THROMBOPLASTIN TIME 20.7 Sec (25.0-35.0)
[2017-09-17] MEDS: AZITHROMYCIN 500MG/NS (PMX) 250 ML IV (11:57)
[2017-09-17 11:58] LABS: LACTIC ACID 1.6 mmol/L (0.5-2.0)
[2017-09-17] MEDS: NITROGLYCERIN 2% 1 GM OINT PKT TD (11:58)
[2017-09-17] MEDS: ASPIRIN 81 MG TAB PO (11:58)
[2017-09-17] MEDS: FUROSEMIDE 40 MG INJ IV ×2 (11:58→17:48)
[2017-09-17] MEDS: NITROGLYCERIN (SL) 0.4 MG TAB SL (11:58)
[2017-09-17] MEDS ORDERED: ONDANSETRON 4 MG INJ IV ×2 (12:30→13:30)
[2017-09-17] MEDS ORDERED: ACETAMINOPHEN 325 MG TAB PO (12:30)
[2017-09-17 12:39] LABS: ANION GAP 19 (8-16); BLOOD UREA NITROGEN 12 mg/dl (7-20); CALCIUM 8.9 mg/dl (8.4-10.2); CARBON DIOXIDE 19 mmol/L (21-31); CHLORIDE 111 mmol/L (97-110); CREATININE 0.84 mg/dl (0.44-1.00); GLUCOSE 111 mg/dl (70-220); POTASSIUM 3.7 mmol/L (3.5-5.1); SODIUM 145 mmol/L (135-144)
[2017-09-17 12:53] LABS: TROPONIN-I < 0.012 ng/ml (0.00-0.12)
[2017-09-17] MEDS ORDERED: ALBUTEROL 0.083% (NEB) 2.5 MG/3 ML AMP HHN (13:30)
[2017-09-17] MEDS ORDERED: NACL 0.9% 3 ML SYG IV (13:30)
[2017-09-17] MEDS ORDERED: HYDROCODONE/APAP (5/325) TAB PO (13:30)
[2017-09-17] MEDS ORDERED: hydrALAzine 20 MG INJ IV (14:30)
[2017-09-17 16:01] LABS: HEMOGLOBIN A1C 5.6 % (0-5.9)
[2017-09-17 16:10] LABS: LACTIC ACID 1.6 mmol/L (0.5-2.0)
[2017-09-17 16:12] LABS: CREATINE KINASE 74 IU/L (23-200)
[2017-09-17 16:23] LABS: B-TYPE NATRIURETIC PEPTIDE 11400 PG/ML (0-450)
[2017-09-17 16:26] LABS: CK INDEX 1.5; CK-MB 1.13 ng/ml (0.0-2.4)
[2017-09-17 16:28] LABS: TROPONIN-I < 0.012 ng/ml (0.00-0.12)
[2017-09-17 16:31] LABS: FREE T4 (FREE THYROXINE) 1.36 ng/dl (0.85-1.93)
[2017-09-17] MEDS: ACETAMINOPHEN 325 MG TAB PO (17:48)
[2017-09-17 19:52] LABS: LACTIC ACID 2.2 mmol/L (0.5-2.0)
[2017-09-17] MEDS: AMIODARONE 200 MG TAB PO (20:38)
[2017-09-17] MEDS: APIXABAN 5 MG TABLET PO (20:39)
[2017-09-17] MEDS: ATORVASTATIN 80 MG TAB PO (23:08)
[2017-09-18] MEDS: FUROSEMIDE 40 MG INJ IV ×2 (05:21→17:24)
[2017-09-18 06:02] LABS: ADD MAN DIFF? NO
[2017-09-18 06:14] LABS: BASOPHILS % 0.8 % (0.0-2.0); EOSINOPHILS # 0.1 10^3/ul (0.0-0.5); EOSINOPHILS % 1.7 % (0.0-7.0); HEMATOCRIT 28.9 % (37.0-47.0); HEMOGLOBIN 9.5 g/dl (12.0-16.0); LYMPHOCYTES # 1.2 10^3/ul (0.8-2.9); LYMPHOCYTES % 25.8 % (15.0-51.0); MEAN CORPUSCULAR HEMOGLOBIN 28.6 pg (29.0-33.0); MEAN CORPUSCULAR HGB CONC 32.9 g/dl (32.0-37.0); MEAN PLATELET VOLUME 9.9 fl (7.4-10.4); MONOCYTE # 0.6 10^3/ul (0.3-0.9); MONOCYTES % 12.1 % (0.0-11.0); NEUTROPHIL # 2.8 10^3/ul (1.6-7.5); NEUTROPHILS % 59.2 % (39.0-77.0); PLATELET COUNT 328 10^3/UL (140-415); RED BLOOD COUNT 3.32 10^6/ul (4.20-5.40); RED CELL DISTRIBUTION WIDTH 15.6 % (11.5-14.5)
[2017-09-18 06:14] LABS: WHITE BLOOD COUNT 4.7 10^3/ul (4.8-10.8)
[2017-09-18 06:49] LABS: PHOSPHORUS 3.6 mg/dl (2.5-4.9)
[2017-09-18 06:49] LABS: CHOL/HDL RATIO 3.4 RATIO; CHOLESTEROL 127 mg/dl (100-200); HDL CHOLESTEROL 37 mg/dl (33-92); LDL CHOLESTEROL,CALCULATED 73 mg/dl; MAGNESIUM 1.7 mg/dl (1.7-2.5); TRIGLYCERIDES 86 mg/dl (0-149)
[2017-09-18 06:58] LABS: ALANINE AMINOTRANSFERASE 34 IU/L (13-69); ALBUMIN 3.2 g/dl (3.3-4.9); ALBUMIN/GLOBULIN RATIO 0.91; ALKALINE PHOSPHATASE 82 IU/L (42-121); ANION GAP 17 (8-16); ASPARTATE AMINO TRANSFERASE 37 IU/L (15-46); BILIRUBIN,INDIRECT 0.6 mg/dl (0-1.1); BILIRUBIN,TOTAL 0.6 mg/dl (0.2-1.3); BLOOD UREA NITROGEN 11 mg/dl (7-20); CALCIUM 8.2 mg/dl (8.4-10.2); CARBON DIOXIDE 25 mmol/L (21-31); CHLORIDE 108 mmol/L (97-110); CREATININE 0.99 mg/dl (0.44-1.00); GLUCOSE 88 mg/dl (70-220); POTASSIUM 3.2 mmol/L (3.5-5.1); SODIUM 147 mmol/L (135-144); TOTAL PROTEIN 6.7 g/dl (6.1-8.1)
[2017-09-18 06:59] LABS: CREATINE KINASE 76 IU/L (23-200)
[2017-09-18 07:04] LABS: CK INDEX 0.8; CK-MB 0.62 ng/ml (0.0-2.4)
[2017-09-18 07:10] LABS: TROPONIN-I < 0.012 ng/ml (0.00-0.12)
[2017-09-18] MEDS: ALBUTEROL 0.083% (NEB) 2.5 MG/3 ML AMP HHN ×3 (07:46→19:48)
[2017-09-18] MEDS: AMIODARONE 200 MG TAB PO ×2 (08:47→21:04)
[2017-09-18] MEDS: APIXABAN 5 MG TABLET PO ×2 (08:48→21:04)
[2017-09-18] MEDS: POLYETHYLENE GLYCOL 17 GM PACKET PO (09:00)
[2017-09-18] MEDS: CLOPIDOGREL 75 MG TAB PO (09:08)
[2017-09-18] MEDS: POTASSIUM CHLORIDE (SR) 20 MEQ TAB PO (13:00)
[2017-09-18] MEDS: GUAIFENESIN/DM 5ML CUP PO ×2 (17:35→22:57)
[2017-09-18] MEDS: ATORVASTATIN 80 MG TAB PO (22:59)
[2017-09-19] MEDS: ACETAMINOPHEN 325 MG TAB PO (06:30)
[2017-09-19] MEDS: FUROSEMIDE 40 MG INJ IV (06:32)
[2017-09-19 08:12] LABS: ADD MAN DIFF? NO
[2017-09-19 08:15] LABS: BASOPHIL # 0.1 10^3/ul (0.0-0.1); EOSINOPHILS # 0.2 10^3/ul (0.0-0.5); EOSINOPHILS % 4.8 % (0.0-7.0); HEMATOCRIT 31.9 % (37.0-47.0); HEMOGLOBIN 10.4 g/dl (12.0-16.0); LYMPHOCYTES # 1.4 10^3/ul (0.8-2.9); MEAN CORPUSCULAR HEMOGLOBIN 28.7 pg (29.0-33.0); MEAN CORPUSCULAR HGB CONC 32.6 g/dl (32.0-37.0); MEAN CORPUSCULAR VOLUME 88.1 fl (82.0-101.0); MEAN PLATELET VOLUME 9.8 fl (7.4-10.4); MONOCYTE # 0.6 10^3/ul (0.3-0.9); MONOCYTES % 12.3 % (0.0-11.0); NEUTROPHIL # 2.5 10^3/ul (1.6-7.5); NEUTROPHILS % 51.7 % (39.0-77.0); PLATELET COUNT 369 10^3/UL (140-415); RED BLOOD COUNT 3.62 10^6/ul (4.20-5.40); RED CELL DISTRIBUTION WIDTH 15.2 % (11.5-14.5)
[2017-09-19 08:15] LABS: WHITE BLOOD COUNT 4.8 10^3/ul (4.8-10.8)
[2017-09-19] MEDS: APIXABAN 5 MG TABLET PO (08:36)
[2017-09-19] MEDS: AMIODARONE 200 MG TAB PO (08:36)
[2017-09-19] MEDS: CLOPIDOGREL 75 MG TAB PO (08:36)
[2017-09-19] MEDS: POLYETHYLENE GLYCOL 17 GM PACKET PO (08:37)
[2017-09-19 08:41] LABS: ANION GAP 16 (8-16); BLOOD UREA NITROGEN 14 mg/dl (7-20); CALCIUM 8.9 mg/dl (8.4-10.2); CARBON DIOXIDE 27 mmol/L (21-31); CHLORIDE 107 mmol/L (97-110); CREATININE 1.12 mg/dl (0.44-1.00); GLUCOSE 106 mg/dl (70-220); MAGNESIUM 1.7 mg/dl (1.7-2.5); POTASSIUM 3.7 mmol/L (3.5-5.1); SODIUM 146 mmol/L (135-144)
[2017-09-19 09:38] LABS: B-TYPE NATRIURETIC PEPTIDE 4350 PG/ML (0-450)
[2017-09-19] MEDS: ALBUTEROL 0.083% (NEB) 2.5 MG/3 ML AMP HHN ×3 (09:56→19:47)
[2017-09-19] MEDS: DILTIAZEM 25 MG INJ IV (12:00)
[2017-09-19] MEDS: DILTIAZEM (CD) 180 MG CAP PO (14:34)
[2017-09-19] MEDS: GUAIFENESIN/DM 5ML CUP PO (16:42)
[2017-09-20] MEDS ORDERED: FUROSEMIDE 40 MG TAB PO (09:00)
== END 2017-09-19 20:30 | disposition home or self-care (01) | DRG 291 ==
LOC: TEL 09-18 23:30 → E/R 10:27 → MS3 12:21
DX: I11.0 Hypertensive heart disease with heart failure (principal); J96.01 Acute respiratory failure with hypoxia; J18.9 Pneumonia, unspecified organism; E87.2 Acidosis; E87.0 Hyperosmolality and hypernatremia; I50.23 Acute on chronic systolic (congestive) heart failure; I25.5 Ischemic cardiomyopathy; E78.5 Hyperlipidemia, unspecified; I25.10 Atherosclerotic heart disease of native coronary artery without angina pectoris; Z95.5 Presence of coronary angioplasty implant and graft; I48.0 Paroxysmal atrial fibrillation; E66.9 Obesity, unspecified; Z68.30 Body mass index [BMI] 30.0-30.9, adult
CPT/HCPCS: 71045; 80048; 80053; 80061; 82550; 82553; 83036; 83605; 83735; 83880; 84100; 84439; 84443; 84484; 85025; 85610; 85730; 87040; 87400; 93005; 94640; 94664; 96374; 96375; 99291-25

== ENCOUNTER 2018-07-25 15:43 | Emergency (ER) | payer MEDICARE, OTHER ==
[2018-07-25 16:25] LABS: ADD MAN DIFF? NO
[2018-07-25] MEDS: SOD CHLORIDE 0.9% 1,000 ML IV (16:26)
[2018-07-25 16:27] LABS: WHITE BLOOD COUNT 5.9 10^3/ul (4.8-10.8)
[2018-07-25 16:27] LABS: BASOPHILS % 0.5 % (0.0-2.0); EOSINOPHILS # 0.2 10^3/ul (0.0-0.5); EOSINOPHILS % 2.9 % (0.0-7.0); HEMATOCRIT 31.3 % (37.0-47.0); HEMOGLOBIN 9.9 g/dl (12.0-16.0); LYMPHOCYTES # 1.8 10^3/ul (0.8-2.9); MEAN CORPUSCULAR HEMOGLOBIN 28.6 pg (29.0-33.0); MEAN CORPUSCULAR HGB CONC 31.6 g/dl (32.0-37.0); MEAN CORPUSCULAR VOLUME 90.5 fl (82.0-101.0); MEAN PLATELET VOLUME 8.9 fl (7.4-10.4); MONOCYTE # 0.6 10^3/ul (0.3-0.9); MONOCYTES % 9.4 % (0.0-11.0); NEUTROPHIL # 3.3 10^3/ul (1.6-7.5); PLATELET COUNT 289 10^3/UL (140-415); RED BLOOD COUNT 3.46 10^6/ul (4.20-5.40); RED CELL DISTRIBUTION WIDTH 14.7 % (11.5-14.5)
[2018-07-25 16:44] LABS: ALANINE AMINOTRANSFERASE 19 IU/L (13-69); ALBUMIN 3.7 g/dl (3.3-4.9); ALBUMIN/GLOBULIN RATIO 1.27; ALKALINE PHOSPHATASE 58 IU/L (42-121); ANION GAP 9 (5-13); ASPARTATE AMINO TRANSFERASE 19 IU/L (15-46); BILIRUBIN,INDIRECT 0.3 mg/dl (0-1.1); BILIRUBIN,TOTAL 0.3 mg/dl (0.2-1.3); BLOOD UREA NITROGEN 14 mg/dl (7-20); CALCIUM 9.8 mg/dl (8.4-10.2); CARBON DIOXIDE 20 mmol/L (21-31); CHLORIDE 112 mmol/L (97-110); CREATININE 1.17 mg/dl (0.44-1.00); GLUCOSE 110 mg/dl (70-220); POTASSIUM 3.7 mmol/L (3.5-5.1); SODIUM 141 mmol/L (135-144); TOTAL PROTEIN 6.6 g/dl (6.1-8.1)
[2018-07-25 16:56] LABS: TROPONIN-I < 0.012 ng/ml (0.000-0.120)
[2018-07-25 17:05] LABS: ADD UMIC YES; UR ASCORBIC ACID NEGATIVE (NEGATIVE); UR BACTERIA FEW /HPF (NONE SEEN); UR BILIRUBIN (Dip) NEGATIVE (NEGATIVE); UR BLOOD (Dip) 1+ mg/dL (NEGATIVE); UR CLARITY SLIGHTLY CLOUDY (CLEAR); UR COLOR STRAW (YELLOW); UR GLUCOSE (Dip) NEGATIVE (NEGATIVE); UR KETONES (Dip) NEGATIVE (NEGATIVE); UR LEUKOCYTE ESTERASE (Dip) NEGATIVE Leu/ul (NEGATIVE); UR NITRITE (Dip) NEGATIVE (NEGATIVE); UR RBC 1 /HPF (0-5); UR SPECIFIC GRAVITY (Dip) 1.003 (1.003-1.030); UR TOTAL PROTEIN (Dip) NEGATIVE (NEGATIVE); UR UROBILINOGEN (Dip) NEGATIVE (NEGATIVE); UR WBC 0 /HPF (0-5)
== END 2018-07-25 18:08 | disposition home or self-care (01) ==
LOC: E/R 15:43
DX: R53.1 Weakness (principal); I10 Essential (primary) hypertension; I25.10 Atherosclerotic heart disease of native coronary artery without angina pectoris; I25.2 Old myocardial infarction; Z98.61 Coronary angioplasty status; Z79.01 Long term (current) use of anticoagulants
CPT/HCPCS: 36415; 71045; 80053; 81001; 83605; 84484; 85025; 87040; 87400; 93005; 99285-25

== ENCOUNTER 2018-11-19 10:58 | Inpatient (IN) | payer MEDICARE, OTHER ==
[2018-11-19 11:43] LABS: ADD MAN DIFF? NO
[2018-11-19] MEDS: morphine 4 MG/ML VIAL IV (11:48)
[2018-11-19] MEDS: ONDANSETRON 4 MG INJ IV (11:48)
[2018-11-19] MEDS: SOD CHLORIDE 0.9% 500 ML IV ×2 (11:49→18:22)
[2018-11-19 11:50] LABS: WHITE BLOOD COUNT 7.2 10^3/ul (4.8-10.8)
[2018-11-19 11:50] LABS: BASOPHILS % 0.6 % (0.0-2.0); EOSINOPHILS # 0.1 10^3/ul (0.0-0.5); EOSINOPHILS % 1.5 % (0.0-7.0); HEMATOCRIT 33.9 % (37.0-47.0); HEMOGLOBIN 10.9 g/dl (12.0-16.0); LYMPHOCYTES # 1.9 10^3/ul (0.8-2.9); LYMPHOCYTES % 26.6 % (15.0-51.0); MEAN CORPUSCULAR HEMOGLOBIN 28.5 pg (29.0-33.0); MEAN CORPUSCULAR HGB CONC 32.2 g/dl (32.0-37.0); MEAN CORPUSCULAR VOLUME 88.5 fl (82.0-101.0); MEAN PLATELET VOLUME 9.6 fl (7.4-10.4); MONOCYTE # 0.4 10^3/ul (0.3-0.9); MONOCYTES % 5.4 % (0.0-11.0); NEUTROPHIL # 4.8 10^3/ul (1.6-7.5); NEUTROPHILS % 65.8 % (39.0-77.0); PLATELET COUNT 308 10^3/UL (140-415); RED BLOOD COUNT 3.83 10^6/ul (4.20-5.40); RED CELL DISTRIBUTION WIDTH 14.7 % (11.5-14.5)
[2018-11-19 12:01] LABS: ANION GAP 9 (5-13); BLOOD UREA NITROGEN 17 mg/dl (7-20); CALCIUM 9.4 mg/dl (8.4-10.2); CARBON DIOXIDE 23 mmol/L (21-31); CHLORIDE 111 mmol/L (97-110); CREATININE 0.92 mg/dl (0.44-1.00); GLUCOSE 120 mg/dl (70-220); POTASSIUM 3.9 mmol/L (3.5-5.1); SODIUM 143 mmol/L (135-144)
[2018-11-19 12:12] LABS: B-TYPE NATRIURETIC PEPTIDE 2770 PG/ML (0-450); TROPONIN-I < 0.012 ng/ml (0.000-0.120)
[2018-11-19] MEDS: LORAZEPAM 2 MG INJ IV ×2 (12:15→22:42)
[2018-11-19 12:16] LABS: INR 1.19; PARTIAL THROMBOPLASTIN TIME 28.3 Sec (23.0-35.0); PROTIME 15.2 Sec (11.9-14.9); PT RATIO 1.2
[2018-11-19] MEDS: IOHEXOL 100 ML (13:41)
[2018-11-19] MEDS: SOD CHLORIDE 0.9% 100 ML (13:42)
[2018-11-19] MEDS ORDERED: ONDANSETRON 4 MG INJ IV (14:30)
[2018-11-19] MEDS: ASPIRIN 81 MG TAB PO (14:42)
[2018-11-19 19:37] LABS: CREATINE KINASE 37 IU/L (23-200)
[2018-11-19 19:48] LABS: CK INDEX 1.6; CK-MB 0.59 ng/ml (0.0-2.4); TROPONIN-I < 0.012 ng/ml (0.000-0.120)
[2018-11-19] MEDS: APIXABAN 5 MG TABLET PO (22:43)
[2018-11-19] MEDS: ATORVASTATIN 40 MG TAB PO (22:43)
[2018-11-19] MEDS: ZOLPIDEM 5 MG TAB PO (22:54)
[2018-11-20 01:21] LABS: CREATINE KINASE 43 IU/L (23-200)
[2018-11-20 01:30] LABS: CK INDEX 1.3; CK-MB 0.58 ng/ml (0.0-2.4); TROPONIN-I < 0.012 ng/ml (0.000-0.120)
[2018-11-20] MEDS: ACETAMINOPHEN 325 MG TAB PO (03:46)
[2018-11-20] MEDS: CLOPIDOGREL 75 MG TAB PO (08:59)
[2018-11-20] MEDS: FUROSEMIDE 40 MG TAB PO (08:59)
[2018-11-20] MEDS: APIXABAN 5 MG TABLET PO ×2 (08:59→20:20)
[2018-11-20] MEDS: LORAZEPAM 2 MG INJ IV ×2 (12:47→22:09)
[2018-11-20] MEDS: HYDROCODONE/APAP (5/325) TAB PO (20:19)
[2018-11-20] MEDS: ATORVASTATIN 40 MG TAB PO (20:22)
[2018-11-20] MEDS ORDERED: LORAZEPAM 1 MG TAB PO (22:00)
[2018-11-21] MEDS: HYDROCODONE/APAP (5/325) TAB PO ×3 (05:51→17:49)
[2018-11-21 07:29] LABS: ADD MAN DIFF? NO
[2018-11-21 07:34] LABS: WHITE BLOOD COUNT 6.6 10^3/ul (4.8-10.8)
[2018-11-21 07:34] LABS: BASOPHIL # 0.1 10^3/ul (0.0-0.1); BASOPHILS % 0.8 % (0.0-2.0); EOSINOPHILS # 0.1 10^3/ul (0.0-0.5); EOSINOPHILS % 1.4 % (0.0-7.0); HEMOGLOBIN 10.3 g/dl (12.0-16.0); LYMPHOCYTES # 2.3 10^3/ul (0.8-2.9); LYMPHOCYTES % 34.5 % (15.0-51.0); MEAN CORPUSCULAR HEMOGLOBIN 28.6 pg (29.0-33.0); MEAN CORPUSCULAR HGB CONC 32.2 g/dl (32.0-37.0); MEAN CORPUSCULAR VOLUME 88.9 fl (82.0-101.0); MEAN PLATELET VOLUME 9.3 fl (7.4-10.4); MONOCYTE # 0.5 10^3/ul (0.3-0.9); MONOCYTES % 7.9 % (0.0-11.0); NEUTROPHIL # 3.7 10^3/ul (1.6-7.5); NEUTROPHILS % 55.2 % (39.0-77.0); PLATELET COUNT 283 10^3/UL (140-415); RED CELL DISTRIBUTION WIDTH 14.6 % (11.5-14.5)
[2018-11-21 07:50] LABS: HEMOGLOBIN A1C 5.9 % (0-5.9)
[2018-11-21 08:00] LABS: ALANINE AMINOTRANSFERASE 28 IU/L (13-69); ALBUMIN 3.6 g/dl (3.3-4.9); ALBUMIN/GLOBULIN RATIO 1.24; ALKALINE PHOSPHATASE 62 IU/L (42-121); ANION GAP 6 (5-13); ASPARTATE AMINO TRANSFERASE 25 IU/L (15-46); BILIRUBIN,INDIRECT 0.8 mg/dl (0-1.1); BILIRUBIN,TOTAL 0.8 mg/dl (0.2-1.3); BLOOD UREA NITROGEN 15 mg/dl (7-20); CALCIUM 9.1 mg/dl (8.4-10.2); CARBON DIOXIDE 27 mmol/L (21-31); CHLORIDE 107 mmol/L (97-110); CREATININE 1.02 mg/dl (0.44-1.00); GLUCOSE 94 mg/dl (70-220); POTASSIUM 3.6 mmol/L (3.5-5.1); SODIUM 140 mmol/L (135-144); TOTAL PROTEIN 6.5 g/dl (6.1-8.1)
[2018-11-21 08:03] LABS: CHOL/HDL RATIO 3.8 RATIO; CHOLESTEROL 183 mg/dl (100-200); HDL CHOLESTEROL 47 mg/dl (33-92); LDL CHOLESTEROL,CALCULATED 125 mg/dl; TRIGLYCERIDES 57 mg/dl (0-149)
[2018-11-21 08:03] LABS: PHOSPHORUS 4.3 mg/dl (2.5-4.9)
[2018-11-21] MEDS: CLOPIDOGREL 75 MG TAB PO (08:41)
[2018-11-21] MEDS: FUROSEMIDE 40 MG TAB PO (08:42)
[2018-11-21] MEDS: APIXABAN 5 MG TABLET PO ×2 (08:42→21:02)
[2018-11-21] MEDS: LORAZEPAM 1 MG TAB PO ×2 (12:02→21:02)
[2018-11-21] MEDS: ATORVASTATIN 40 MG TAB PO (21:02)
[2018-11-22] MEDS: HYDROCODONE/APAP (5/325) TAB PO ×3 (03:17→17:14)
[2018-11-22] MEDS: APIXABAN 5 MG TABLET PO ×2 (08:31→20:25)
[2018-11-22] MEDS: CLOPIDOGREL 75 MG TAB PO (08:35)
[2018-11-22] MEDS: FUROSEMIDE 40 MG TAB PO (08:35)
[2018-11-22 09:09] LABS: ADD MAN DIFF? NO
[2018-11-22 09:12] LABS: BASOPHIL # 0.1 10^3/ul (0.0-0.1); BASOPHILS % 0.7 % (0.0-2.0); EOSINOPHILS # 0.1 10^3/ul (0.0-0.5); EOSINOPHILS % 1.4 % (0.0-7.0); HEMATOCRIT 33.3 % (37.0-47.0); HEMOGLOBIN 10.8 g/dl (12.0-16.0); LYMPHOCYTES # 2.3 10^3/ul (0.8-2.9); LYMPHOCYTES % 31.4 % (15.0-51.0); MEAN CORPUSCULAR HEMOGLOBIN 28.9 pg (29.0-33.0); MEAN CORPUSCULAR HGB CONC 32.4 g/dl (32.0-37.0); MEAN PLATELET VOLUME 9.5 fl (7.4-10.4); MONOCYTE # 0.7 10^3/ul (0.3-0.9); MONOCYTES % 8.9 % (0.0-11.0); NEUTROPHIL # 4.2 10^3/ul (1.6-7.5); NEUTROPHILS % 57.3 % (39.0-77.0); PLATELET COUNT 305 10^3/UL (140-415); RED BLOOD COUNT 3.74 10^6/ul (4.20-5.40); RED CELL DISTRIBUTION WIDTH 14.7 % (11.5-14.5)
[2018-11-22 09:12] LABS: WHITE BLOOD COUNT 7.3 10^3/ul (4.8-10.8)
[2018-11-22 09:32] LABS: MAGNESIUM 2.1 mg/dl (1.7-2.5)
[2018-11-22 09:34] LABS: ANION GAP 9 (5-13); BLOOD UREA NITROGEN 21 mg/dl (7-20); CALCIUM 8.9 mg/dl (8.4-10.2); CARBON DIOXIDE 25 mmol/L (21-31); CHLORIDE 105 mmol/L (97-110); CREATININE 1.44 mg/dl (0.44-1.00); GLUCOSE 94 mg/dl (70-220); POTASSIUM 3.6 mmol/L (3.5-5.1); SODIUM 139 mmol/L (135-144)
[2018-11-22] MEDS: ATORVASTATIN 40 MG TAB PO (20:25)
[2018-11-22] MEDS: LORAZEPAM 1 MG TAB PO (20:28)
[2018-11-23] MEDS: HYDROCODONE/APAP (5/325) TAB PO (08:04)
[2018-11-23] MEDS ORDERED: ENOXAPARIN 40 MG/0.4 ML SYG SC (09:00)
[2018-11-23] MEDS: CLOPIDOGREL 75 MG TAB PO (09:37)
[2018-11-23] MEDS: APIXABAN 5 MG TABLET PO ×2 (09:37→20:40)
[2018-11-23] MEDS: SENNA/DOCUSATE NA (8.6MG/50MG) TAB PO (09:38)
[2018-11-23] MEDS: FAMOTIDINE 20 MG TAB PO (09:38)
[2018-11-23] MEDS ORDERED: morphine 4 MG/ML VIAL IV (12:30)
[2018-11-23] MEDS: NAPROXEN 500 MG TAB PO ×2 (13:02→20:40)
[2018-11-23] MEDS: GABAPENTIN 100 MG CAP PO ×2 (13:02→20:40)
[2018-11-23] MEDS ORDERED: ONDANSETRON 4 MG INJ IV ×2 (15:30→16:00)
[2018-11-23] MEDS: ATORVASTATIN 40 MG TAB PO (20:40)
[2018-11-24] MEDS ORDERED: FUROSEMIDE 20 MG TAB PO (09:00)
[2018-11-24] MEDS: APIXABAN 5 MG TABLET PO ×2 (09:51→21:22)
[2018-11-24] MEDS: NAPROXEN 500 MG TAB PO ×3 (09:52→21:21)
[2018-11-24] MEDS: FAMOTIDINE 20 MG TAB PO (09:52)
[2018-11-24] MEDS: SENNA/DOCUSATE NA (8.6MG/50MG) TAB PO (09:52)
[2018-11-24] MEDS: GABAPENTIN 100 MG CAP PO ×3 (09:52→21:21)
[2018-11-24] MEDS: CLOPIDOGREL 75 MG TAB PO (09:53)
[2018-11-24] MEDS: ATORVASTATIN 40 MG TAB PO (21:21)
[2018-11-25] MEDS: APIXABAN 5 MG TABLET PO ×2 (08:59→20:26)
[2018-11-25] MEDS: CLOPIDOGREL 75 MG TAB PO (08:59)
[2018-11-25] MEDS: FAMOTIDINE 20 MG TAB PO (08:59)
[2018-11-25] MEDS: GABAPENTIN 100 MG CAP PO ×3 (08:59→20:26)
[2018-11-25] MEDS: SENNA/DOCUSATE NA (8.6MG/50MG) TAB PO (08:59)
[2018-11-25] MEDS: NAPROXEN 500 MG TAB PO (08:59)
[2018-11-25] MEDS: HYDROCODONE/APAP (10/325) TAB PO (09:08)
[2018-11-25] MEDS ORDERED: NAPROXEN 500 MG TAB PO (12:00)
[2018-11-25] MEDS: ATORVASTATIN 40 MG TAB PO (20:26)
[2018-11-26] MEDS: HYDROCODONE/APAP (10/325) TAB PO (01:48)
[2018-11-26] MEDS: SENNA/DOCUSATE NA (8.6MG/50MG) TAB PO (08:20)
[2018-11-26] MEDS: CLOPIDOGREL 75 MG TAB PO (08:20)
[2018-11-26] MEDS: GABAPENTIN 100 MG CAP PO ×2 (08:21→12:01)
[2018-11-26] MEDS: FAMOTIDINE 20 MG TAB PO (08:21)
[2018-11-26] MEDS: APIXABAN 5 MG TABLET PO (08:22)
[2018-11-26] MEDS: ACETAMINOPHEN 325 MG TAB PO (12:01)
== END 2018-11-26 15:08 | DRG 313 ==
LOC: MS1 11-21 16:21 → E/R 10:58 → MS1 11-21 18:23 → TEL 14:14
DX: R07.89 Other chest pain (principal); I50.22 Chronic systolic (congestive) heart failure; I48.91 Unspecified atrial fibrillation; M54.9 Dorsalgia, unspecified; I11.0 Hypertensive heart disease with heart failure; Z95.5 Presence of coronary angioplasty implant and graft; I25.5 Ischemic cardiomyopathy; E78.5 Hyperlipidemia, unspecified; I25.2 Old myocardial infarction; M48.00 Spinal stenosis, site unspecified; I95.9 Hypotension, unspecified
CPT/HCPCS: 36415; 71045; 71275; 72040; 72148; 80048; 80053; 80061; 82550; 82553; 83036; 83735; 83880; 84100; 84484; 85025; 85610; 85730; 93005; 96374; 96375; 97116; 97161; 97530; 99217; 99285-25

== ENCOUNTER 2018-12-20 20:02 | Emergency (ER) | payer MEDICARE, OTHER ==
[2018-12-20 21:09] LABS: ADD UMIC YES; UR ASCORBIC ACID NEGATIVE (NEGATIVE); UR BACTERIA FEW /HPF (NONE SEEN); UR BILIRUBIN (Dip) NEGATIVE (NEGATIVE); UR BLOOD (Dip) 1+ mg/dL (NEGATIVE); UR CLARITY SLIGHTLY CLOUDY (CLEAR); UR COLOR YELLOW (YELLOW); UR GLUCOSE (Dip) NEGATIVE (NEGATIVE); UR KETONES (Dip) NEGATIVE (NEGATIVE); UR LEUKOCYTE ESTERASE (Dip) TRACE Leu/ul (NEGATIVE); UR NITRITE (Dip) NEGATIVE (NEGATIVE); UR RBC 5 /HPF (0-5); UR SPECIFIC GRAVITY (Dip) 1.016 (1.003-1.030); UR SQUAMOUS EPITHELIAL CELL FEW /HPF (FEW); UR TOTAL PROTEIN (Dip) NEGATIVE (NEGATIVE); UR UROBILINOGEN (Dip) NEGATIVE (NEGATIVE); UR WBC 3 /HPF (0-5)
[2018-12-20] MEDS: SOD CHLORIDE 0.9% 1,000 ML IV (21:35)
[2018-12-20] MEDS: CEPHALEXIN 500 MG CAP PO (21:35)
[2018-12-20 21:50] LABS: ADD MAN DIFF? NO
[2018-12-20 21:51] LABS: WHITE BLOOD COUNT 11.1 10^3/ul (4.8-10.8)
[2018-12-20 21:51] LABS: BASOPHILS % 0.2 % (0.0-2.0); HEMATOCRIT 30.6 % (37.0-47.0); HEMOGLOBIN 10.1 g/dl (12.0-16.0); LYMPHOCYTES % 17.9 % (15.0-51.0); MEAN CORPUSCULAR HEMOGLOBIN 28.6 pg (29.0-33.0); MEAN CORPUSCULAR VOLUME 86.7 fl (82.0-101.0); MEAN PLATELET VOLUME 10.2 fl (7.4-10.4); MONOCYTE # 1.1 10^3/ul (0.3-0.9); MONOCYTES % 10.2 % (0.0-11.0); NEUTROPHIL # 7.9 10^3/ul (1.6-7.5); NEUTROPHILS % 71.1 % (39.0-77.0); PLATELET COUNT 327 10^3/UL (140-415); RED BLOOD COUNT 3.53 10^6/ul (4.20-5.40)
[2018-12-20 21:57] LABS: ALANINE AMINOTRANSFERASE 41 IU/L (13-69); ALBUMIN 3.1 g/dl (3.3-4.9); ALBUMIN/GLOBULIN RATIO 1.03; ALKALINE PHOSPHATASE 54 IU/L (42-121); ANION GAP 7 (5-13); ASPARTATE AMINO TRANSFERASE 31 IU/L (15-46); BILIRUBIN,INDIRECT 0.5 mg/dl (0-1.1); BILIRUBIN,TOTAL 0.5 mg/dl (0.2-1.3); BLOOD UREA NITROGEN 24 mg/dl (7-20); CALCIUM 8.4 mg/dl (8.4-10.2); CARBON DIOXIDE 20 mmol/L (21-31); CHLORIDE 113 mmol/L (97-110); CREATININE 0.99 mg/dl (0.44-1.00); GLUCOSE 108 mg/dl (70-220); LIPASE 100 U/L (23-300); POTASSIUM 4.5 mmol/L (3.5-5.1); SODIUM 140 mmol/L (135-144); TOTAL PROTEIN 6.1 g/dl (6.1-8.1)
[2018-12-20 22:09] LABS: B-TYPE NATRIURETIC PEPTIDE 5500 PG/ML (0-450); TROPONIN-I < 0.012 ng/ml (0.000-0.120)
== END 2018-12-20 23:01 | disposition home or self-care (01) ==
LOC: E/R 20:02
DX: N39.0 Urinary tract infection, site not specified (principal); F41.9 Anxiety disorder, unspecified; I25.10 Atherosclerotic heart disease of native coronary artery without angina pectoris; I10 Essential (primary) hypertension; I50.9 Heart failure, unspecified; I25.2 Old myocardial infarction; E66.9 Obesity, unspecified; Z79.01 Long term (current) use of anticoagulants; Z68.24 Body mass index [BMI] 24.0-24.9, adult
CPT/HCPCS: 36415; 71045; 80053; 81001; 83690; 83880; 84484; 85025; 87086; 93005; 99285-25

== ENCOUNTER 2018-12-30 17:39 | Inpatient (IN) | payer MEDICARE, OTHER ==
[2018-12-30 18:13] LABS: ADD MAN DIFF? NO
[2018-12-30 18:16] LABS: WHITE BLOOD COUNT 10.6 10^3/ul (4.8-10.8)
[2018-12-30 18:16] LABS: BASOPHILS % 0.3 % (0.0-2.0); EOSINOPHILS # 0.1 10^3/ul (0.0-0.5); EOSINOPHILS % 1.3 % (0.0-7.0); HEMOGLOBIN 9.3 g/dl (12.0-16.0); LYMPHOCYTES % 19.1 % (15.0-51.0); MEAN CORPUSCULAR HEMOGLOBIN 28.7 pg (29.0-33.0); MEAN CORPUSCULAR HGB CONC 33.2 g/dl (32.0-37.0); MEAN CORPUSCULAR VOLUME 86.4 fl (82.0-101.0); MEAN PLATELET VOLUME 9.8 fl (7.4-10.4); MONOCYTE # 0.7 10^3/ul (0.3-0.9); MONOCYTES % 6.3 % (0.0-11.0); NEUTROPHIL # 7.7 10^3/ul (1.6-7.5); NEUTROPHILS % 72.8 % (39.0-77.0); PLATELET COUNT 283 10^3/UL (140-415); RED BLOOD COUNT 3.24 10^6/ul (4.20-5.40); RED CELL DISTRIBUTION WIDTH 14.6 % (11.5-14.5)
[2018-12-30 18:33] LABS: ALANINE AMINOTRANSFERASE 26 IU/L (13-69); ALBUMIN 3.3 g/dl (3.3-4.9); ALBUMIN/GLOBULIN RATIO 1.06; ALKALINE PHOSPHATASE 59 IU/L (42-121); ANION GAP 11 (5-13); ASPARTATE AMINO TRANSFERASE 17 IU/L (15-46); BILIRUBIN,INDIRECT 0.9 mg/dl (0-1.1); BILIRUBIN,TOTAL 0.9 mg/dl (0.2-1.3); BLOOD UREA NITROGEN 8 mg/dl (7-20); CALCIUM 9.1 mg/dl (8.4-10.2); CARBON DIOXIDE 16 mmol/L (21-31); CHLORIDE 112 mmol/L (97-110); CREATININE 0.81 mg/dl (0.44-1.00); GLUCOSE 99 mg/dl (70-220); LIPASE 93 U/L (23-300); POTASSIUM 3.7 mmol/L (3.5-5.1); SODIUM 139 mmol/L (135-144); TOTAL PROTEIN 6.4 g/dl (6.1-8.1)
[2018-12-30 18:45] LABS: B-TYPE NATRIURETIC PEPTIDE 4410 PG/ML (0-450); TROPONIN-I < 0.012 ng/ml (0.000-0.120)
[2018-12-30] MEDS: morphine 2 MG INJ IV (18:49)
[2018-12-30] MEDS: ONDANSETRON 4 MG INJ IV (18:49)
[2018-12-30 19:03] LABS: URINE BLOOD (Dip) POC Trace-intact (NEGATIVE); URINE GLUCOSE (Dip) POC Negative (NEGATIVE); URINE KETONES (Dip) POC Trace (NEGATIVE); URINE LEUKOCYTE EST (Dip) POC 2+ (NEGATIVE); URINE NITRITE (Dip) POC Negative (NEGATIVE); URINE TOTAL PROTEIN POC 1+ (NEGATIVE)
[2018-12-30 19:14] LABS: ADD UMIC YES; UR ASCORBIC ACID NEGATIVE (NEGATIVE); UR BACTERIA FEW /HPF (NONE SEEN); UR BILIRUBIN (Dip) NEGATIVE (NEGATIVE); UR BLOOD (Dip) 1+ mg/dL (NEGATIVE); UR CLARITY CLOUDY (CLEAR); UR COLOR YELLOW (YELLOW); UR GLUCOSE (Dip) NEGATIVE (NEGATIVE); UR KETONES (Dip) TRACE mg/dL (NEGATIVE); UR LEUKOCYTE ESTERASE (Dip) 2+ Leu/ul (NEGATIVE); UR NITRITE (Dip) NEGATIVE (NEGATIVE); UR RBC 2 /HPF (0-5); UR SPECIFIC GRAVITY (Dip) 1.006 (1.003-1.030); UR SQUAMOUS EPITHELIAL CELL MODERATE /HPF (FEW); UR TOTAL PROTEIN (Dip) NEGATIVE (NEGATIVE); UR UROBILINOGEN (Dip) NEGATIVE (NEGATIVE); UR WBC 3 /HPF (0-5)
[2018-12-30] MEDS: CEFTRIAXONE 1 GM/50 ML (PMX) 50 ML IVPB (20:06)
[2018-12-30] MEDS: FUROSEMIDE 40 MG INJ IV (20:08)
[2018-12-30] MEDS ORDERED: NACL 0.9% 3 ML SYG IV (21:00)
[2018-12-30] MEDS ORDERED: ZOLPIDEM 5 MG TAB PO (21:00)
[2018-12-30] MEDS ORDERED: ALBUTEROL/IPRATROPIUM (NEB) 3 ML AMP HHN (21:00)
[2018-12-30] MEDS: SACUBITRIL/VALSARTAN (49mg-51mg) TABLET PO (21:00)
[2018-12-30] MEDS ORDERED: HEPARIN 5,000 UNIT/1 ML VIAL SC (21:00)
[2018-12-30] MEDS ORDERED: NITROGLYCERIN (SL) 0.4 MG TAB SL (21:00)
[2018-12-30] MEDS: APIXABAN 5 MG TABLET PO (21:50)
[2018-12-30] MEDS: ATORVASTATIN 40 MG TAB PO (21:50)
[2018-12-31] MEDS: ONDANSETRON 4 MG INJ IV (06:22)
[2018-12-31] MEDS: FUROSEMIDE 40 MG TAB PO (08:48)
[2018-12-31] MEDS: CLOPIDOGREL 75 MG TAB PO (08:48)
[2018-12-31] MEDS: APIXABAN 5 MG TABLET PO ×2 (08:48→20:34)
[2018-12-31] MEDS: SACUBITRIL/VALSARTAN (49mg-51mg) TABLET PO ×2 (08:51→20:33)
[2018-12-31] MEDS: PANTOPRAZOLE (EC) 40 MG TAB PO (09:00)
[2018-12-31 09:01] LABS: ADD MAN DIFF? NO
[2018-12-31 09:04] LABS: WHITE BLOOD COUNT 15.7 10^3/ul (4.8-10.8)
[2018-12-31 09:04] LABS: BASOPHIL # 0.1 10^3/ul (0.0-0.1); BASOPHILS % 0.3 % (0.0-2.0); EOSINOPHILS # 0.2 10^3/ul (0.0-0.5); HEMATOCRIT 32.6 % (37.0-47.0); HEMOGLOBIN 10.8 g/dl (12.0-16.0); LYMPHOCYTES # 1.6 10^3/ul (0.8-2.9); LYMPHOCYTES % 10.2 % (15.0-51.0); MEAN CORPUSCULAR HEMOGLOBIN 28.8 pg (29.0-33.0); MEAN CORPUSCULAR HGB CONC 33.1 g/dl (32.0-37.0); MEAN CORPUSCULAR VOLUME 86.9 fl (82.0-101.0); MEAN PLATELET VOLUME 9.8 fl (7.4-10.4); MONOCYTE # 0.8 10^3/ul (0.3-0.9); MONOCYTES % 4.8 % (0.0-11.0); NEUTROPHIL # 13.1 10^3/ul (1.6-7.5); NEUTROPHILS % 83.3 % (39.0-77.0); PLATELET COUNT 311 10^3/UL (140-415); RED BLOOD COUNT 3.75 10^6/ul (4.20-5.40); RED CELL DISTRIBUTION WIDTH 14.9 % (11.5-14.5)
[2018-12-31] MEDS: ACETAMINOPHEN 325 MG TAB PO (09:17)
[2018-12-31 09:23] LABS: ALANINE AMINOTRANSFERASE 24 IU/L (13-69); ALBUMIN 3.7 g/dl (3.3-4.9); ALBUMIN/GLOBULIN RATIO 1.12; ALKALINE PHOSPHATASE 71 IU/L (42-121); ANION GAP 10 (5-13); ASPARTATE AMINO TRANSFERASE 17 IU/L (15-46); BLOOD UREA NITROGEN 8 mg/dl (7-20); CALCIUM 9.1 mg/dl (8.4-10.2); CARBON DIOXIDE 21 mmol/L (21-31); CHLORIDE 110 mmol/L (97-110); CREATININE 0.97 mg/dl (0.44-1.00); GLUCOSE 123 mg/dl (70-220); MAGNESIUM 1.7 mg/dl (1.7-2.5); POTASSIUM 3.6 mmol/L (3.5-5.1); SODIUM 141 mmol/L (135-144)
[2018-12-31 10:47] LABS: LACTIC ACID 1.2 mmol/L (0.5-2.0)
[2018-12-31] MEDS ORDERED: HYDROCODONE/APAP (5/325) TAB PO (11:30)
[2018-12-31] MEDS ORDERED: hydrALAzine 20 MG INJ IV (12:30)
[2018-12-31] MEDS: ESCITALOPRAM 10 MG TAB PO (13:30)
[2018-12-31] MEDS: CEFEPIME 1GM/50 ML (PMX) 50 ML IVPB ×2 (13:35→20:34)
[2018-12-31] MEDS: LORAZEPAM 1 MG TAB PO ×2 (15:12→21:53)
[2018-12-31] MEDS: traMADol 50 MG TAB PO (19:25)
[2018-12-31] MEDS: DOCUSATE SODIUM 100 MG CAP PO (20:33)
[2018-12-31] MEDS: DULOXETINE 30 MG CAP DR PO (20:33)
[2018-12-31] MEDS: ATORVASTATIN 40 MG TAB PO (20:33)
[2018-12-31] MEDS ORDERED: NAPROXEN 250 MG TAB PO (21:00)
[2018-12-31] MEDS ORDERED: CEFEPIME 1GM/50 ML (PMX) 50 ML IVPB (21:00)
[2018-12-31] MEDS ORDERED: CEFTRIAXONE 1 GM/50 ML (PMX) 50 ML IVPB (21:00)
[2019-01-01] MEDS: CEFEPIME 1GM/50 ML (PMX) 50 ML IVPB ×2 (08:31→20:27)
[2019-01-01] MEDS: DOCUSATE SODIUM 100 MG CAP PO ×2 (08:31→20:26)
[2019-01-01] MEDS: APIXABAN 5 MG TABLET PO ×2 (08:31→20:26)
[2019-01-01] MEDS: PANTOPRAZOLE (EC) 40 MG TAB PO (08:31)
[2019-01-01] MEDS: FUROSEMIDE 40 MG TAB PO (08:32)
[2019-01-01] MEDS: SACUBITRIL/VALSARTAN (49mg-51mg) TABLET PO ×2 (08:32→21:00)
[2019-01-01] MEDS: DULOXETINE 30 MG CAP DR PO ×2 (08:33→20:26)
[2019-01-01] MEDS: CLOPIDOGREL 75 MG TAB PO (08:33)
[2019-01-01] MEDS: LORAZEPAM 1 MG TAB PO (09:31)
[2019-01-01] MEDS ORDERED: METHYLPREDNISOLONE (MEDROL) DOSE PACK PO (18:00)
[2019-01-01] MEDS: MEGESTROL 40 MG TAB PO (20:26)
[2019-01-01] MEDS: ATORVASTATIN 40 MG TAB PO (20:26)
[2019-01-01] MEDS: GABAPENTIN 300 MG CAP PO (20:26)
[2019-01-01] MEDS: IBUPROFEN 800 MG TAB GTB ×2 (20:27→22:00)
[2019-01-01] MEDS: METHYLPREDNISOLONE 4 MG TAB PO (20:34)
[2019-01-01 20:52] LABS: ADD MAN DIFF? NO
[2019-01-01 20:54] LABS: WHITE BLOOD COUNT 13.1 10^3/ul (4.8-10.8)
[2019-01-01 20:54] LABS: BASOPHIL # 0.1 10^3/ul (0.0-0.1); BASOPHILS % 0.4 % (0.0-2.0); EOSINOPHILS # 0.2 10^3/ul (0.0-0.5); EOSINOPHILS % 1.4 % (0.0-7.0); HEMATOCRIT 33.5 % (37.0-47.0); HEMOGLOBIN 10.9 g/dl (12.0-16.0); LYMPHOCYTES % 14.9 % (15.0-51.0); MEAN CORPUSCULAR HEMOGLOBIN 28.4 pg (29.0-33.0); MEAN CORPUSCULAR HGB CONC 32.5 g/dl (32.0-37.0); MEAN CORPUSCULAR VOLUME 87.2 fl (82.0-101.0); MEAN PLATELET VOLUME 9.8 fl (7.4-10.4); MONOCYTES % 7.2 % (0.0-11.0); NEUTROPHILS % 75.8 % (39.0-77.0); PLATELET COUNT 297 10^3/UL (140-415); RED BLOOD COUNT 3.84 10^6/ul (4.20-5.40); RED CELL DISTRIBUTION WIDTH 14.6 % (11.5-14.5)
[2019-01-01 21:16] LABS: ALANINE AMINOTRANSFERASE 18 IU/L (13-69); ALBUMIN 3.5 g/dl (3.3-4.9); ALBUMIN/GLOBULIN RATIO 1.09; ALKALINE PHOSPHATASE 61 IU/L (42-121); ANION GAP 10 (5-13); ASPARTATE AMINO TRANSFERASE 17 IU/L (15-46); BLOOD UREA NITROGEN 16 mg/dl (7-20); CALCIUM 8.9 mg/dl (8.4-10.2); CARBON DIOXIDE 23 mmol/L (21-31); CHLORIDE 106 mmol/L (97-110); CREATININE 1.58 mg/dl (0.44-1.00); GLUCOSE 133 mg/dl (70-220); POTASSIUM 3.4 mmol/L (3.5-5.1); SODIUM 139 mmol/L (135-144); TOTAL PROTEIN 6.7 g/dl (6.1-8.1)
[2019-01-01 21:27] LABS: TROPONIN-I 0.018 ng/ml (0.000-0.120)
[2019-01-02] MEDS: IBUPROFEN 800 MG TAB GTB ×3 (06:02→21:03)
[2019-01-02] MEDS: METHYLPREDNISOLONE 4 MG TAB PO ×4 (07:42→21:02)
[2019-01-02] MEDS: PANTOPRAZOLE (EC) 40 MG TAB PO (08:11)
[2019-01-02] MEDS: APIXABAN 5 MG TABLET PO ×2 (08:11→21:02)
[2019-01-02] MEDS: DOCUSATE SODIUM 100 MG CAP PO ×2 (08:11→21:02)
[2019-01-02] MEDS: DULOXETINE 30 MG CAP DR PO ×2 (08:11→21:03)
[2019-01-02] MEDS: GABAPENTIN 300 MG CAP PO ×2 (08:11→21:02)
[2019-01-02] MEDS: FUROSEMIDE 40 MG TAB PO (08:11)
[2019-01-02] MEDS: CEFEPIME 1GM/50 ML (PMX) 50 ML IVPB ×2 (08:11→21:02)
[2019-01-02] MEDS: SACUBITRIL/VALSARTAN (49mg-51mg) TABLET PO ×2 (08:11→21:00)
[2019-01-02] MEDS: MEGESTROL 40 MG TAB PO ×2 (08:11→21:02)
[2019-01-02] MEDS: CLOPIDOGREL 75 MG TAB PO (08:11)
[2019-01-02] MEDS: ATORVASTATIN 40 MG TAB PO (21:02)
[2019-01-03] MEDS: IBUPROFEN 800 MG TAB GTB (05:30)
[2019-01-03] MEDS: METHYLPREDNISOLONE 4 MG TAB PO ×4 (08:56→20:51)
[2019-01-03] MEDS: DULOXETINE 30 MG CAP DR PO ×2 (08:57→20:51)
[2019-01-03] MEDS: DOCUSATE SODIUM 100 MG CAP PO ×2 (08:57→20:51)
[2019-01-03] MEDS: CEFEPIME 1GM/50 ML (PMX) 50 ML IVPB ×2 (08:57→20:51)
[2019-01-03] MEDS: CLOPIDOGREL 75 MG TAB PO (08:57)
[2019-01-03] MEDS: GABAPENTIN 300 MG CAP PO ×2 (08:57→20:51)
[2019-01-03] MEDS: PANTOPRAZOLE (EC) 40 MG TAB PO (08:57)
[2019-01-03] MEDS: MEGESTROL 40 MG TAB PO ×2 (08:58→20:51)
[2019-01-03] MEDS: SACUBITRIL/VALSARTAN (49mg-51mg) TABLET PO ×2 (08:58→09:00)
[2019-01-03] MEDS: APIXABAN 5 MG TABLET PO ×2 (08:58→20:51)
[2019-01-03] MEDS: traMADol 50 MG TAB PO (09:07)
[2019-01-03 11:12] LABS: ANION GAP 13 (5-13); BLOOD UREA NITROGEN 30 mg/dl (7-20); CALCIUM 8.4 mg/dl (8.4-10.2); CARBON DIOXIDE 19 mmol/L (21-31); CHLORIDE 105 mmol/L (97-110); CREATININE 1.71 mg/dl (0.44-1.00); GLUCOSE 201 mg/dl (70-220); POTASSIUM 3.6 mmol/L (3.5-5.1); SODIUM 137 mmol/L (135-144)
[2019-01-03] MEDS: ACETAMINOPHEN 325 MG TAB PO (12:57)
[2019-01-03] MEDS: SOD CHLORIDE 0.9% 1,000 ML IV ×2 (12:57→16:12)
[2019-01-03] MEDS: SOD CHLORIDE 0.9% 250 ML IV (16:12)
[2019-01-03 20:03] LABS: ADD UMIC YES; UR ASCORBIC ACID NEGATIVE (NEGATIVE); UR BACTERIA FEW /HPF (NONE SEEN); UR BILIRUBIN (Dip) NEGATIVE (NEGATIVE); UR BLOOD (Dip) 1+ mg/dL (NEGATIVE); UR CLARITY CLEAR (CLEAR); UR COLOR YELLOW (YELLOW); UR GLUCOSE (Dip) NEGATIVE (NEGATIVE); UR KETONES (Dip) NEGATIVE (NEGATIVE); UR LEUKOCYTE ESTERASE (Dip) 1+ Leu/ul (NEGATIVE); UR NITRITE (Dip) NEGATIVE (NEGATIVE); UR RBC 1 /HPF (0-5); UR SPECIFIC GRAVITY (Dip) 1.013 (1.003-1.030); UR TOTAL PROTEIN (Dip) 1+ mg/dl (NEGATIVE); UR UROBILINOGEN (Dip) NEGATIVE (NEGATIVE); UR WBC 5 /HPF (0-5)
[2019-01-03 20:13] LABS: SODIUM,URINE RANDOM 30 mmol/L (30-90)
[2019-01-03 20:14] LABS: CREATININE,URINE RANDOM 75.77 mg/dl (20-320); PROTEIN/CREAT RATIO 0.48 RATIO
[2019-01-03] MEDS: ATORVASTATIN 40 MG TAB PO (20:51)
[2019-01-04 05:47] LABS: ADD MAN DIFF? NO
[2019-01-04 05:59] LABS: BASOPHILS % 0.1 % (0.0-2.0); HEMATOCRIT 31.4 % (37.0-47.0); HEMOGLOBIN 10.2 g/dl (12.0-16.0); LYMPHOCYTES % 7.6 % (15.0-51.0); MEAN CORPUSCULAR HEMOGLOBIN 28.6 pg (29.0-33.0); MEAN CORPUSCULAR HGB CONC 32.5 g/dl (32.0-37.0); MEAN PLATELET VOLUME 9.9 fl (7.4-10.4); MONOCYTES % 7.4 % (0.0-11.0); NEUTROPHILS % 84.4 % (39.0-77.0); PLATELET COUNT 331 10^3/UL (140-415); RED BLOOD COUNT 3.57 10^6/ul (4.20-5.40); RED CELL DISTRIBUTION WIDTH 14.7 % (11.5-14.5)
[2019-01-04 07:10] LABS: MAGNESIUM 1.8 mg/dl (1.7-2.5)
[2019-01-04 07:10] LABS: PHOSPHORUS 3.3 mg/dl (2.5-4.9)
[2019-01-04 07:20] LABS: ANION GAP 10 (5-13); BLOOD UREA NITROGEN 35 mg/dl (7-20); CALCIUM 8.7 mg/dl (8.4-10.2); CARBON DIOXIDE 22 mmol/L (21-31); CHLORIDE 107 mmol/L (97-110); CREATININE 1.49 mg/dl (0.44-1.00); GLUCOSE 139 mg/dl (70-220); POTASSIUM 4.2 mmol/L (3.5-5.1); SODIUM 139 mmol/L (135-144)
[2019-01-04] MEDS: DULOXETINE 30 MG CAP DR PO ×2 (08:09→20:04)
[2019-01-04] MEDS: METHYLPREDNISOLONE 4 MG TAB PO ×3 (08:09→20:04)
[2019-01-04] MEDS: APIXABAN 5 MG TABLET PO ×2 (08:10→20:04)
[2019-01-04] MEDS: PANTOPRAZOLE (EC) 40 MG TAB PO (08:10)
[2019-01-04] MEDS: CEFEPIME 1GM/50 ML (PMX) 50 ML IVPB ×2 (08:10→20:04)
[2019-01-04] MEDS: DOCUSATE SODIUM 100 MG CAP PO ×2 (08:10→20:04)
[2019-01-04] MEDS: GABAPENTIN 300 MG CAP PO ×2 (08:10→20:04)
[2019-01-04] MEDS: CLOPIDOGREL 75 MG TAB PO (08:10)
[2019-01-04] MEDS: MEGESTROL 40 MG TAB PO ×2 (08:10→20:04)
[2019-01-04 08:59] LABS: AADO2 Arterial 36.4 mmHg (7.0-24.0); Allen Test ACCEPTAB; Arterial Base Excess -5.8 mmol/L (-3.0-3); Arterial Blood Gas Oxygen Sat 94.6 mmHG (95.0-100.0); Arterial COHb 0.3 % (0.0-3.0); Arterial Fraction of Oxyhgb 94.1 % (93.0-99.0); Arterial HCO3 18.3 mmol/L (22.0-26.0); Arterial MetHb 0.2 % (0.0-1.5); Arterial pCO2 31.3 mmhg (35-45); MODE ROOM AIR; Site Right Brachial
[2019-01-04] MEDS: SOD CHLORIDE 0.9% 1,000 ML IV (10:47)
[2019-01-04] MEDS: ATORVASTATIN 40 MG TAB PO (20:04)
[2019-01-05 06:23] LABS: ADD MAN DIFF? NO
[2019-01-05 06:36] LABS: BASOPHILS % 0.1 % (0.0-2.0); EOSINOPHILS # 0.1 10^3/ul (0.0-0.5); EOSINOPHILS % 1.3 % (0.0-7.0); HEMATOCRIT 31.9 % (37.0-47.0); HEMOGLOBIN 10.3 g/dl (12.0-16.0); LYMPHOCYTES # 1.7 10^3/ul (0.8-2.9); LYMPHOCYTES % 15.6 % (15.0-51.0); MEAN CORPUSCULAR HEMOGLOBIN 28.8 pg (29.0-33.0); MEAN CORPUSCULAR HGB CONC 32.3 g/dl (32.0-37.0); MEAN CORPUSCULAR VOLUME 89.1 fl (82.0-101.0); MEAN PLATELET VOLUME 9.9 fl (7.4-10.4); MONOCYTES % 9.6 % (0.0-11.0); NEUTROPHIL # 7.7 10^3/ul (1.6-7.5); PLATELET COUNT 316 10^3/UL (140-415); RED BLOOD COUNT 3.58 10^6/ul (4.20-5.40)
[2019-01-05 06:36] LABS: WHITE BLOOD COUNT 10.6 10^3/ul (4.8-10.8)
[2019-01-05] MEDS: SOD CHLORIDE 0.9% 1,000 ML IV (06:50)
[2019-01-05] MEDS: METHYLPREDNISOLONE 4 MG TAB PO ×2 (06:50→20:25)
[2019-01-05 06:59] LABS: ALANINE AMINOTRANSFERASE 23 IU/L (13-69); ALBUMIN/GLOBULIN RATIO 1.03; ALKALINE PHOSPHATASE 51 IU/L (42-121); ANION GAP 7 (5-13); ASPARTATE AMINO TRANSFERASE 18 IU/L (15-46); BILIRUBIN,INDIRECT 0.5 mg/dl (0-1.1); BILIRUBIN,TOTAL 0.5 mg/dl (0.2-1.3); BLOOD UREA NITROGEN 25 mg/dl (7-20); CALCIUM 8.7 mg/dl (8.4-10.2); CARBON DIOXIDE 21 mmol/L (21-31); CHLORIDE 114 mmol/L (97-110); CREATININE 0.93 mg/dl (0.44-1.00); GLUCOSE 94 mg/dl (70-220); POTASSIUM 4.1 mmol/L (3.5-5.1); SODIUM 142 mmol/L (135-144); TOTAL PROTEIN 5.9 g/dl (6.1-8.1)
[2019-01-05] MEDS: CEFEPIME 1GM/50 ML (PMX) 50 ML IVPB ×2 (08:32→20:25)
[2019-01-05] MEDS: GABAPENTIN 300 MG CAP PO ×2 (08:32→20:26)
[2019-01-05] MEDS: CLOPIDOGREL 75 MG TAB PO (08:32)
[2019-01-05] MEDS: APIXABAN 5 MG TABLET PO ×2 (08:32→20:26)
[2019-01-05] MEDS: MEGESTROL 40 MG TAB PO ×2 (08:33→20:26)
[2019-01-05] MEDS: PANTOPRAZOLE (EC) 40 MG TAB PO (08:33)
[2019-01-05] MEDS: DOCUSATE SODIUM 100 MG CAP PO ×2 (08:33→20:25)
[2019-01-05] MEDS: DULOXETINE 30 MG CAP DR PO ×2 (08:33→20:25)
[2019-01-05] MEDS: traMADol 50 MG TAB PO (11:06)
[2019-01-05] MEDS: ATORVASTATIN 40 MG TAB PO (20:25)
[2019-01-06] MEDS: SOD CHLORIDE 0.9% 1,000 ML IV (03:00)
[2019-01-06] MEDS: METHYLPREDNISOLONE 4 MG TAB PO (06:36)
[2019-01-06] MEDS: GABAPENTIN 300 MG CAP PO (09:18)
[2019-01-06] MEDS: DOCUSATE SODIUM 100 MG CAP PO (09:18)
[2019-01-06] MEDS: FAMOTIDINE 20 MG TAB PO (09:18)
[2019-01-06] MEDS: DULOXETINE 30 MG CAP DR PO (09:18)
[2019-01-06] MEDS: MEGESTROL 40 MG TAB PO (09:18)
[2019-01-06] MEDS: CLOPIDOGREL 75 MG TAB PO (09:19)
[2019-01-06] MEDS: APIXABAN 5 MG TABLET PO (09:19)
[2019-01-06] MEDS: traMADol 50 MG TAB PO (10:27)
[2019-01-06 11:23] LABS: ALANINE AMINOTRANSFERASE 29 IU/L (13-69); ALBUMIN 3.2 g/dl (3.3-4.9); ALBUMIN/GLOBULIN RATIO 1.18; ALKALINE PHOSPHATASE 57 IU/L (42-121); ANION GAP 7 (5-13); ASPARTATE AMINO TRANSFERASE 18 IU/L (15-46); BILIRUBIN,INDIRECT 0.6 mg/dl (0-1.1); BILIRUBIN,TOTAL 0.6 mg/dl (0.2-1.3); BLOOD UREA NITROGEN 17 mg/dl (7-20); CALCIUM 9.1 mg/dl (8.4-10.2); CARBON DIOXIDE 19 mmol/L (21-31); CHLORIDE 115 mmol/L (97-110); CREATININE 0.86 mg/dl (0.44-1.00); GLUCOSE 117 mg/dl (70-220); POTASSIUM 4.1 mmol/L (3.5-5.1); SODIUM 141 mmol/L (135-144); TOTAL PROTEIN 5.9 g/dl (6.1-8.1)
== END 2019-01-06 19:15 | DRG 551 ==
LOC: E/R 17:39 → TEL 20:02
PROC: 4A033R1 Measurement of Arterial Saturation, Peripheral, Percutaneous Approach (ICD-10-PCS; principal; 2019-01-04)
DX: M51.36 Other intervertebral disc degeneration, lumbar region (principal); N17.0 Acute kidney failure with tubular necrosis; I13.0 Hypertensive heart and chronic kidney disease with heart failure and stage 1 through stage 4 chronic kidney disease, or unspecified chronic kidney disease; E87.2 Acidosis; I50.42 Chronic combined systolic (congestive) and diastolic (congestive) heart failure; M48.061 Spinal stenosis, lumbar region without neurogenic claudication; M46.86 Other specified inflammatory spondylopathies, lumbar region; F32.9 Major depressive disorder, single episode, unspecified; E78.5 Hyperlipidemia, unspecified; I25.10 Atherosclerotic heart disease of native coronary artery without angina pectoris; G89.29 Other chronic pain; I25.5 Ischemic cardiomyopathy; H54.62 Unqualified visual loss, left eye, normal vision right eye; I25.2 Old myocardial infarction; I95.9 Hypotension, unspecified; I48.2 Chronic atrial fibrillation; I48.0 Paroxysmal atrial fibrillation; Z79.01 Long term (current) use of anticoagulants; Z86.73 Personal history of transient ischemic attack (TIA), and cerebral infarction without residual deficits; Z95.5 Presence of coronary angioplasty implant and graft
CPT/HCPCS: 36415; 36600; 71045; 72100; 72128; 72131; 80048; 80053; 81001; 81003; 82570; 82803; 82962; 83605; 83690; 83735; 83880; 84100; 84300; 84484; 85025; 87040-91; 87086; 93005; 96374; 96375; 97110; 97116; 97161; 97530; 99285-25

== ENCOUNTER 2019-02-20 12:16 | Inpatient (IN) | payer MEDICARE, OTHER ==
[2019-02-20] MEDS: morphine 4 MG/ML VIAL IV ×2 (13:20→17:21)
[2019-02-20] MEDS: ONDANSETRON 4 MG INJ IV ×2 (13:20→17:22)
[2019-02-20] MEDS ORDERED: ACETAMINOPHEN 325 MG TAB PO (15:30)
[2019-02-20] MEDS ORDERED: ACETAMINOPHEN/CODEINE #3 TAB PO (18:00)
[2019-02-20] MEDS ORDERED: HYDROCODONE/APAP (5/325) TAB PO (18:30)
[2019-02-20] MEDS ORDERED: HYDROCODONE/APAP (10/325) TAB PO (19:00)
[2019-02-20] MEDS ORDERED: NACL 0.9% 3 ML SYG IV (19:00)
[2019-02-20] MEDS ORDERED: METHYLPREDNISOLONE (MEDROL) DOSE PACK PO (19:00)
[2019-02-20] MEDS ORDERED: BISACODYL 10 MG SUPP PR (19:00)
[2019-02-20] MEDS: ATORVASTATIN 40 MG TAB PO (20:44)
[2019-02-20] MEDS: DULOXETINE 30 MG CAP DR PO (20:44)
[2019-02-20] MEDS: APIXABAN 5 MG TABLET PO (20:45)
[2019-02-20] MEDS: METHYLPREDNISOLONE 4 MG TAB PO (20:46)
[2019-02-20] MEDS: MAGNESIUM HYDROXIDE 30ML CUP PO (20:47)
[2019-02-20] MEDS: ATENOLOL 25 MG TAB PO (20:47)
[2019-02-20] MEDS: KETOROLAC 30 MG INJ IV (20:49)
[2019-02-20] MEDS ORDERED: FAMOTIDINE 20 MG TAB PO (21:00)
[2019-02-21] MEDS: ZOLPIDEM 5 MG TAB PO ×2 (01:30→23:36)
[2019-02-21] MEDS: OXYCODONE/ACETAMINOPHEN (5/325) TAB PO ×3 (01:42→23:36)
[2019-02-21] MEDS ORDERED: ENOXAPARIN 40 MG/0.4 ML SYG SC (09:00)
[2019-02-21] MEDS: MAGNESIUM HYDROXIDE 30ML CUP PO ×2 (09:14→21:00)
[2019-02-21] MEDS: METHYLPREDNISOLONE 4 MG TAB PO ×4 (09:15→21:18)
[2019-02-21] MEDS: POTASSIUM CHLORIDE 20 MEQ POWDER FOR ORAL SOLN PO (09:15)
[2019-02-21] MEDS: APIXABAN 5 MG TABLET PO ×2 (09:15→21:14)
[2019-02-21] MEDS: DULOXETINE 30 MG CAP DR PO ×2 (09:15→21:15)
[2019-02-21] MEDS: ATENOLOL 25 MG TAB PO ×2 (09:16→21:17)
[2019-02-21] MEDS: FAMOTIDINE 20 MG TAB PO (09:17)
[2019-02-21] MEDS: CLOPIDOGREL 75 MG TAB PO (09:17)
[2019-02-21] MEDS: ATORVASTATIN 40 MG TAB PO (21:17)
[2019-02-22] MEDS: morphine 2 MG INJ IV ×4 (03:04→18:30)
[2019-02-22] MEDS: OXYCODONE/ACETAMINOPHEN (5/325) TAB PO ×3 (03:07→20:26)
[2019-02-22] MEDS: METHYLPREDNISOLONE 4 MG TAB PO ×4 (06:16→20:25)
[2019-02-22] MEDS: DULOXETINE 30 MG CAP DR PO ×2 (08:49→20:25)
[2019-02-22] MEDS: POTASSIUM CHLORIDE 20 MEQ POWDER FOR ORAL SOLN PO (08:49)
[2019-02-22] MEDS: FAMOTIDINE 20 MG TAB PO (08:49)
[2019-02-22] MEDS: CLOPIDOGREL 75 MG TAB PO (08:49)
[2019-02-22] MEDS: APIXABAN 5 MG TABLET PO ×2 (08:49→20:25)
[2019-02-22] MEDS: ATENOLOL 25 MG TAB PO ×2 (08:50→20:25)
[2019-02-22] MEDS: ATORVASTATIN 40 MG TAB PO (20:25)
[2019-02-23] MEDS: OXYCODONE/ACETAMINOPHEN (5/325) TAB PO ×4 (00:11→23:19)
[2019-02-23] MEDS: METHYLPREDNISOLONE 4 MG TAB PO ×3 (06:33→20:15)
[2019-02-23] MEDS: DULOXETINE 30 MG CAP DR PO ×2 (08:54→20:14)
[2019-02-23] MEDS: POTASSIUM CHLORIDE 20 MEQ POWDER FOR ORAL SOLN PO (08:54)
[2019-02-23] MEDS: CLOPIDOGREL 75 MG TAB PO (08:54)
[2019-02-23] MEDS: ATENOLOL 25 MG TAB PO ×2 (08:55→20:14)
[2019-02-23] MEDS: APIXABAN 5 MG TABLET PO ×2 (08:55→20:14)
[2019-02-23] MEDS: FAMOTIDINE 20 MG TAB PO (08:55)
[2019-02-23] MEDS: ONDANSETRON 4 MG INJ IV (14:28)
[2019-02-23] MEDS: ATORVASTATIN 40 MG TAB PO (20:14)
[2019-02-23] MEDS: ZOLPIDEM 5 MG TAB PO (21:42)
[2019-02-24] MEDS: METHYLPREDNISOLONE 4 MG TAB PO ×2 (06:40→20:28)
[2019-02-24] MEDS: CLOPIDOGREL 75 MG TAB PO (10:02)
[2019-02-24] MEDS: DULOXETINE 30 MG CAP DR PO ×2 (10:02→20:29)
[2019-02-24] MEDS: ATENOLOL 25 MG TAB PO ×2 (10:03→20:29)
[2019-02-24] MEDS: FAMOTIDINE 20 MG TAB PO (10:03)
[2019-02-24] MEDS: APIXABAN 5 MG TABLET PO ×2 (10:03→20:29)
[2019-02-24] MEDS: POTASSIUM CHLORIDE 20 MEQ POWDER FOR ORAL SOLN PO (10:04)
[2019-02-24] MEDS: OXYCODONE/ACETAMINOPHEN (5/325) TAB PO ×2 (11:42→17:07)
[2019-02-24] MEDS: ATORVASTATIN 40 MG TAB PO (20:29)
[2019-02-25] MEDS: OXYCODONE/ACETAMINOPHEN (5/325) TAB PO ×3 (02:08→20:53)
[2019-02-25] MEDS: POTASSIUM CHLORIDE 20 MEQ POWDER FOR ORAL SOLN PO (09:10)
[2019-02-25] MEDS: ATENOLOL 25 MG TAB PO ×2 (09:11→20:53)
[2019-02-25] MEDS: FAMOTIDINE 20 MG TAB PO (09:11)
[2019-02-25] MEDS: SENNA/DOCUSATE NA (8.6MG/50MG) TAB PO (09:11)
[2019-02-25] MEDS: CLOPIDOGREL 75 MG TAB PO (09:11)
[2019-02-25] MEDS: DULOXETINE 30 MG CAP DR PO ×2 (09:12→20:53)
[2019-02-25] MEDS: APIXABAN 5 MG TABLET PO ×2 (09:12→20:53)
[2019-02-25] MEDS: METHYLPREDNISOLONE 4 MG TAB PO (09:12)
[2019-02-25] MEDS: ATORVASTATIN 40 MG TAB PO (20:52)
[2019-02-26] MEDS: APIXABAN 5 MG TABLET PO ×2 (08:35→21:24)
[2019-02-26] MEDS: DULOXETINE 30 MG CAP DR PO ×2 (08:36→21:24)
[2019-02-26] MEDS: ATENOLOL 25 MG TAB PO ×2 (08:36→22:07)
[2019-02-26] MEDS: FAMOTIDINE 20 MG TAB PO (08:37)
[2019-02-26] MEDS: CLOPIDOGREL 75 MG TAB PO (08:38)
[2019-02-26] MEDS: OXYCODONE/ACETAMINOPHEN (5/325) TAB PO ×2 (08:38→12:15)
[2019-02-26] MEDS: SENNA/DOCUSATE NA (8.6MG/50MG) TAB PO (08:39)
[2019-02-26] MEDS: POTASSIUM CHLORIDE 20 MEQ POWDER FOR ORAL SOLN PO (08:39)
[2019-02-26] MEDS: SACUBITRIL/VALSARTAN (49mg-51mg) TABLET PO (21:00)
[2019-02-26] MEDS: ATORVASTATIN 40 MG TAB PO (21:24)
[2019-02-26] MEDS: GABAPENTIN 300 MG CAP PO (21:24)
[2019-02-27] MEDS: SENNA/DOCUSATE NA (8.6MG/50MG) TAB PO (08:59)
[2019-02-27] MEDS: GABAPENTIN 300 MG CAP PO (08:59)
[2019-02-27] MEDS: FAMOTIDINE 20 MG TAB PO (08:59)
[2019-02-27] MEDS: CLOPIDOGREL 75 MG TAB PO (08:59)
[2019-02-27] MEDS: DULOXETINE 30 MG CAP DR PO ×2 (08:59→21:01)
[2019-02-27] MEDS: POTASSIUM CHLORIDE 20 MEQ POWDER FOR ORAL SOLN PO (09:00)
[2019-02-27] MEDS: APIXABAN 5 MG TABLET PO ×2 (09:00→21:01)
[2019-02-27] MEDS: ATENOLOL 25 MG TAB PO ×2 (09:00→21:02)
[2019-02-27] MEDS: SACUBITRIL/VALSARTAN (49mg-51mg) TABLET PO ×3 (11:30→21:53)
[2019-02-27] MEDS: PIPER-TAZO 3.375 GM IV (PMX) 100 ML IVPB (11:38)
[2019-02-27] MEDS: AMLODIPINE 2.5 MG TAB PO (12:00)
[2019-02-27] MEDS: OXYCODONE/ACETAMINOPHEN (5/325) TAB PO (12:19)
[2019-02-27] MEDS: MAGNESIUM HYDROXIDE 30ML CUP PO (17:27)
[2019-02-27] MEDS: AMOXICILLIN/CLAV 875 MG TAB PO (21:00)
[2019-02-27] MEDS: ATORVASTATIN 40 MG TAB PO (21:01)
[2019-02-27] MEDS: GABAPENTIN 100 MG CAP PO (21:01)
[2019-02-27] MEDS: ZOLPIDEM 5 MG TAB PO (21:53)
[2019-02-28] MEDS: OXYCODONE/ACETAMINOPHEN (5/325) TAB PO ×4 (02:11→21:17)
[2019-02-28] MEDS: SOD CHLORIDE 0.9% 500 ML IV ×2 (08:34→13:32)
[2019-02-28] MEDS: AMLODIPINE 2.5 MG TAB PO (08:39)
[2019-02-28] MEDS: ATENOLOL 25 MG TAB PO (08:39)
[2019-02-28] MEDS: DULOXETINE 30 MG CAP DR PO ×2 (09:12→21:16)
[2019-02-28] MEDS: SACUBITRIL/VALSARTAN (49mg-51mg) TABLET PO (09:12)
[2019-02-28] MEDS: CLOPIDOGREL 75 MG TAB PO (09:12)
[2019-02-28] MEDS: FAMOTIDINE 20 MG TAB PO (09:12)
[2019-02-28] MEDS: GABAPENTIN 100 MG CAP PO ×2 (09:12→21:17)
[2019-02-28] MEDS: APIXABAN 5 MG TABLET PO ×2 (09:13→21:17)
[2019-02-28] MEDS: SENNA/DOCUSATE NA (8.6MG/50MG) TAB PO (09:13)
[2019-02-28] MEDS: AMOXICILLIN/CLAV 875 MG TAB PO ×2 (09:13→21:16)
[2019-02-28] MEDS: ATORVASTATIN 40 MG TAB PO (21:16)
[2019-03-01] MEDS: AMOXICILLIN/CLAV 875 MG TAB PO ×2 (10:30→20:09)
[2019-03-01] MEDS: GABAPENTIN 100 MG CAP PO (10:30)
[2019-03-01] MEDS: SENNA/DOCUSATE NA (8.6MG/50MG) TAB PO (10:30)
[2019-03-01] MEDS: CLOPIDOGREL 75 MG TAB PO (10:30)
[2019-03-01] MEDS: APIXABAN 5 MG TABLET PO ×2 (10:32→20:10)
[2019-03-01] MEDS: FAMOTIDINE 20 MG TAB PO (10:32)
[2019-03-01] MEDS: DULOXETINE 30 MG CAP DR PO ×2 (10:34→20:10)
[2019-03-01] MEDS: OXYCODONE/ACETAMINOPHEN (5/325) TAB PO (10:44)
[2019-03-01] MEDS: SOD CHLORIDE 0.9% 500 ML IV (15:16)
[2019-03-01] MEDS: HALOPERIDOL 5 MG INJ IM (16:39)
[2019-03-01] MEDS: ATORVASTATIN 40 MG TAB PO (20:10)
[2019-03-01] MEDS: ZOLPIDEM 5 MG TAB PO (20:10)
[2019-03-01] MEDS: ACETAMINOPHEN 325 MG TAB PO (20:11)
[2019-03-02] MEDS: FAMOTIDINE 20 MG TAB PO (09:20)
[2019-03-02] MEDS: SENNA/DOCUSATE NA (8.6MG/50MG) TAB PO (09:20)
[2019-03-02] MEDS: CLOPIDOGREL 75 MG TAB PO (09:20)
[2019-03-02] MEDS: DULOXETINE 30 MG CAP DR PO ×2 (09:20→22:00)
[2019-03-02] MEDS: APIXABAN 5 MG TABLET PO ×2 (09:20→21:58)
[2019-03-02] MEDS: AMOXICILLIN/CLAV 875 MG TAB PO ×2 (09:20→21:59)
[2019-03-02] MEDS: ACETAMINOPHEN 325 MG TAB PO ×3 (09:21→21:58)
[2019-03-02] MEDS: ATORVASTATIN 40 MG TAB PO (22:00)
[2019-03-03] MEDS: hydrALAzine 20 MG INJ IV ×2 (03:41→07:12)
[2019-03-03] MEDS: ACETAMINOPHEN 325 MG TAB PO ×2 (04:18→10:11)
[2019-03-03] MEDS: SENNA/DOCUSATE NA (8.6MG/50MG) TAB PO ×2 (09:00→09:59)
[2019-03-03] MEDS: FAMOTIDINE 20 MG TAB PO (09:58)
[2019-03-03] MEDS: DULOXETINE 30 MG CAP DR PO ×2 (09:58→21:23)
[2019-03-03] MEDS: AMOXICILLIN/CLAV 875 MG TAB PO ×2 (09:58→21:21)
[2019-03-03] MEDS: CLOPIDOGREL 75 MG TAB PO (09:58)
[2019-03-03] MEDS: APIXABAN 5 MG TABLET PO ×2 (09:59→21:21)
[2019-03-03] MEDS: POTASSIUM CHLORIDE 20 MEQ POWDER FOR ORAL SOLN PO ×2 (11:10→16:18)
[2019-03-03] MEDS: OXYCODONE/ACETAMINOPHEN (5/325) TAB PO ×2 (12:02→22:52)
[2019-03-03] MEDS: METOPROLOL 5 MG INJ IV (15:00)
[2019-03-03] MEDS ORDERED: DILTIAZEM 25 MG INJ IV (16:00)
[2019-03-03] MEDS: ASPIRIN (EC) 81 MG TAB PO (16:17)
[2019-03-03] MEDS: DIGOXIN 500 MCG INJ IV (16:17)
[2019-03-03] MEDS: MAGNESIUM SULFATE 2 GM/50 ML 50 ML IVPB (16:17)
[2019-03-03] MEDS: AMIODARONE 150MG/D5W BOLUS 100 ML IV (17:10)
[2019-03-03] MEDS: AMIODARONE 900 MG in DEXTROSE 5% 482 ML IV (17:32)
[2019-03-03] MEDS: ZOLPIDEM 5 MG TAB PO (21:22)
[2019-03-03] MEDS: ATORVASTATIN 40 MG TAB PO (21:22)
[2019-03-03] MEDS: KETOROLAC 15 MG INJ IV (21:23)
[2019-03-04] MEDS: AMIODARONE 900 MG in DEXTROSE 5% 482 ML IV ×2 (05:06→17:14)
[2019-03-04] MEDS: AMOXICILLIN/CLAV 875 MG TAB PO ×2 (07:51→20:56)
[2019-03-04] MEDS: SENNA/DOCUSATE NA (8.6MG/50MG) TAB PO (07:51)
[2019-03-04] MEDS: APIXABAN 5 MG TABLET PO ×2 (07:51→20:56)
[2019-03-04] MEDS: FAMOTIDINE 20 MG TAB PO (07:51)
[2019-03-04] MEDS: CLOPIDOGREL 75 MG TAB PO (07:51)
[2019-03-04] MEDS: DULOXETINE 30 MG CAP DR PO ×2 (07:51→20:56)
[2019-03-04] MEDS: hydrALAzine 20 MG INJ IV (07:53)
[2019-03-04] MEDS: OXYCODONE/ACETAMINOPHEN (5/325) TAB PO ×2 (11:00→18:55)
[2019-03-04] MEDS: ACETAMINOPHEN 325 MG TAB PO (14:47)
[2019-03-04] MEDS: KETOROLAC 15 MG INJ IV ×2 (14:58→22:34)
[2019-03-04] MEDS: ATORVASTATIN 40 MG TAB PO (20:56)
[2019-03-04] MEDS: ZOLPIDEM 5 MG TAB PO (22:39)
[2019-03-05] MEDS: FAMOTIDINE 20 MG TAB PO (08:12)
[2019-03-05] MEDS: DULOXETINE 30 MG CAP DR PO ×2 (08:12→20:38)
[2019-03-05] MEDS: CLOPIDOGREL 75 MG TAB PO (08:12)
[2019-03-05] MEDS: AMOXICILLIN/CLAV 875 MG TAB PO ×2 (08:12→20:39)
[2019-03-05] MEDS: APIXABAN 5 MG TABLET PO ×2 (08:12→20:40)
[2019-03-05] MEDS: SENNA/DOCUSATE NA (8.6MG/50MG) TAB PO (08:12)
[2019-03-05] MEDS: OXYCODONE/ACETAMINOPHEN (5/325) TAB PO (08:16)
[2019-03-05] MEDS: AMIODARONE 200 MG TAB PO ×2 (10:16→20:39)
[2019-03-05] MEDS: KETOROLAC 15 MG INJ IV ×2 (11:07→20:42)
[2019-03-05] MEDS: FERROUS SULFATE (EC) 325 MG TAB PO (14:38)
[2019-03-05] MEDS: ATORVASTATIN 40 MG TAB PO (20:39)
[2019-03-05] MEDS: ZOLPIDEM 5 MG TAB PO (20:40)
[2019-03-06] MEDS: HALOPERIDOL 5 MG INJ IV (04:48)
[2019-03-06] MEDS: LORAZEPAM 2 MG INJ IV (04:50)
[2019-03-06] MEDS: DULOXETINE 30 MG CAP DR PO (08:40)
[2019-03-06] MEDS: APIXABAN 5 MG TABLET PO (08:46)
[2019-03-06] MEDS: AMIODARONE 200 MG TAB PO (08:46)
[2019-03-06] MEDS: CLOPIDOGREL 75 MG TAB PO (08:46)
[2019-03-06] MEDS: FAMOTIDINE 20 MG TAB PO (08:46)
[2019-03-06] MEDS: FERROUS SULFATE (EC) 325 MG TAB PO (08:48)
[2019-03-06] MEDS: SENNA/DOCUSATE NA (8.6MG/50MG) TAB PO (08:48)
[2019-03-06] MEDS: AMOXICILLIN/CLAV 875 MG TAB PO (08:48)
[2019-03-06] MEDS: DIPHENHYDRAMINE 50 MG INJ IV (08:49)
[2019-03-06] MEDS ORDERED: traMADol 50 MG TAB PO (10:30)
[2019-03-06] MEDS: HALOPERIDOL 5 MG INJ IM (11:56)
[2019-03-06] MEDS ORDERED: QUETIAPINE 25 MG TAB PO (21:00)
== END 2019-03-06 18:00 | DRG 552 ==
LOC: 2NE 02-22 07:07 → 6WM 03-03 15:05 → E/R 12:16 → 2NE 15:29
DX: M48.00 Spinal stenosis, site unspecified (principal); K12.2 Cellulitis and abscess of mouth; I13.0 Hypertensive heart and chronic kidney disease with heart failure and stage 1 through stage 4 chronic kidney disease, or unspecified chronic kidney disease; I50.42 Chronic combined systolic (congestive) and diastolic (congestive) heart failure; F33.2 Major depressive disorder, recurrent severe without psychotic features; G93.40 Encephalopathy, unspecified; S39.012A Strain of muscle, fascia and tendon of lower back, initial encounter; N18.9 Chronic kidney disease, unspecified; I25.10 Atherosclerotic heart disease of native coronary artery without angina pectoris; G89.29 Other chronic pain; E78.5 Hyperlipidemia, unspecified; K04.7 Periapical abscess without sinus; M47.9 Spondylosis, unspecified; K80.80 Other cholelithiasis without obstruction; I25.2 Old myocardial infarction; I48.0 Paroxysmal atrial fibrillation; K59.00 Constipation, unspecified; R62.7 Adult failure to thrive; D64.9 Anemia, unspecified; K02.9 Dental caries, unspecified; F03.90 Unspecified dementia, unspecified severity, without behavioral disturbance, psychotic disturbance, mood disturbance, and anxiety; I95.9 Hypotension, unspecified; Z95.5 Presence of coronary angioplasty implant and graft; X58.XXXA Exposure to other specified factors, initial encounter; Z79.02 Long term (current) use of antithrombotics/antiplatelets
CPT/HCPCS: 70486; 71045; 72100; 73500; 73562; 74176; 76856; 80048; 80053; 80061; 80069; 80162; 81001; 82550; 82553; 82728; 82962; 83036; 83540; 83690; 83735; 83880; 84100; 84145; 84439; 84443; 84484; 85025; 85610; 85651; 85730; 86140; 86850; 86900; 86901; 87040-91; 87081; 93005; 93306; 96374; 96375; 97110; 97116; 97161; 97530; 99217; 99285-25